=== PATIENT | male | born 1970 | race Two or more races ===

== ENCOUNTER 2017-08-15 12:00 | Emergency (ER) | payer OTHER, MEDICAID ==
[~2017-08-15] VITALS: Ht 185.4 cm; Wt 113.4 kg
[~2017-08-15 12:00] MED LIST: ASPI81CH43 PO; INSREG3 SUBCUT; INSUINJ2 SC; KEP500T PO; LEV100T PO; LEVEMIR SC; LISI-646 PO; MET25T PO; OXY20CRT PO; PANT40T PO
[2017-08-15] MEDS ORDERED: ASPirin 81 mg TAB PO ONE (14:15)
[2017-08-15 14:36] LABS: Basophils # (auto) 0.1 uL; Basophils % (auto) 1.1 % (0.0-2.0); Eosinophils # (auto) 0.1 uL; Eosinophils % (auto) 0.7 % (0.0-7.0); Hematocrit 45.9 % (41.0-53.0); Hemoglobin 15.9 g/dL (13.5-17.5); Lymphocytes # (auto) 1.7 uL; Lymphocytes % (auto) 20.9 % (10.0-50.0); Mean Corpuscular Hemoglobin 31.4 pg (28.0-32.0); Mean Corpuscular Hgb Conc. 34.7 g/dL (32.0-36.0); Mean Corpuscular Volume 90.4 fL (80.0-100.0); Mean Platelet Volume 7.5 fL (6.9-10.8); Monocytes # (auto) 0.5 uL; Monocytes % (auto) 6.4 % (0.0-12.0); Neutrophils # (auto) 5.8 uL; Neutrophils % (auto) 70.9 % (37.0-80.0); Nucleated Red Blood Cells % 0.1 %; Platelet Count (auto) 281 10^3/uL (140-450); Red Cell Distribution Width 13.6 % (11.8-14.3); White Blood Cell 8.1 10^3/uL (4.4-10.8)
[2017-08-15 15:00] LABS: BUN/Creatinine Ratio 11.4; Bilirubin, Total 0.4 mg/dL (0.2-1.0); Calcium 6.9 mg/dL (8.5-10.1); Potassium 3.6 mmol/L (3.5-5.1); Total Protein 8.1 g/dL (6.4-8.2)
[2017-08-15 17:06] VITALS: BP 106/75
== END 2017-08-15 17:07 | disposition home or self-care (01) ==
LOC: ER 12:00
DX: R07.89 Other chest pain (principal); I10 Essential (primary) hypertension; E11.9 Type 2 diabetes mellitus without complications; F17.210 Nicotine dependence, cigarettes, uncomplicated; Z79.4 Long term (current) use of insulin; Z79.82 Long term (current) use of aspirin
CPT/HCPCS: 36415; 71020; 80053; 82962; 84484; 85025; 93005

== ENCOUNTER 2018-04-13 11:08 | Inpatient (IN) | payer OTHER, MEDICAID ==
[2018-04-13] VITALS (26 sets, daily range): BP systolic 93–143; BP diastolic 61–77
[~2018-04-13] VITALS: Ht 185.4 cm; Wt 102.9 kg
[~2018-04-13 11:08] MED LIST changes: +ONDANSETRON HCL 4 MG/2 ML VIAL IV ONE; +PHENYLEPHRINE INJ 10 MG/ML 5ML VIAL IV ONE; +PROPOFOL 10 MG/ML 20 ML IV ONE; +ROCURONIUM 10MG/ML 10ML VIAL IV ONE; +SODIUM CHLOR 0.9% PF (SALINE LOCK) 10ML VIAL/SYR IV ONE; +ceFAZolin 1GM VL IV ONE; +ePHEDrine SULFATE 50 MG/ML AMP IV ONE; +fentaNYL CITRATE 250 MCG/5 ML VL IV ONE
[2018-04-13] MEDS ORDERED: SODIUM CHLORIDE 0.9% 1,000 ML IVB ONE (11:25)
[2018-04-13] MEDS ORDERED: PANTOPRAZOLE 40 MG/10 ML VIAL IV STA (11:25)
[2018-04-13] MEDS ORDERED: ONDANSETRON HCL 4 MG/2 ML VIAL IV ONE (11:30)
[2018-04-13] MEDS ORDERED: MORPHINE SULFATE 4 MG/ML SYR/VIAL IV ONE (11:30)
[2018-04-13 11:50] LABS: Basophils # (auto) 0 uL; Basophils % (auto) 0.3 % (0.0-2.0); Eosinophils # (auto) 0 uL; Eosinophils % (auto) 0.1 % (0.0-7.0); Hematocrit 39.1 % (41.0-53.0); Hemoglobin 13.1 g/dL (13.5-17.5); Lymphocytes # (auto) 0.5 uL; Lymphocytes % (auto) 3.7 % (10.0-50.0); Mean Corpuscular Hemoglobin 31.5 pg (28.0-32.0); Mean Corpuscular Hgb Conc. 33.6 g/dL (32.0-36.0); Mean Corpuscular Volume 93.8 fL (80.0-100.0); Monocytes # (auto) 0.4 uL; Monocytes % (auto) 3.1 % (0.0-12.0); Neutrophils # (auto) 13.2 uL; Neutrophils % (auto) 92.8 % (37.0-80.0); Nucleated Red Blood Cells % 0.1 %; Platelet Count (auto) 311 10^3/uL (140-450); Red Blood Cells 4.17 10^6/uL (4.5-5.90); Red Cell Distribution Width 14.3 % (11.8-14.3); White Blood Cell 14.2 10^3/uL (4.4-10.8)
[2018-04-13] MEDS ORDERED: IOHEXOL 300 MG/ML 100ML BOTTLE IJ ONE (11:59)
[2018-04-13] MEDS ORDERED: metroNIDAZOLE 500MG/100ML 100 ML IV ONE (12:00)
[2018-04-13] MEDS ORDERED: PIPERACILLIN-TAZOB 3.375GM 100 ML IV ONE (12:00)
[2018-04-13 12:13] LABS: Albumin 3.1 g/dL (3.4-5.0); BUN/Creatinine Ratio 22.2; Bilirubin, Total 1.7 mg/dL (0.2-1.0); Calcium 6.3 mg/dL (8.5-10.1); Magnesium 2.7 mg/dL (1.6-2.6); Potassium 3.2 mmol/L (3.5-5.1); Total Protein 8.4 g/dL (6.4-8.2)
[2018-04-13] MEDS ORDERED: POTASSIUM CHL 20MEQ/100ML 100 ML IV ONE (13:15)
[2018-04-13] MEDS ORDERED: NITROGLYCERIN 0.4 MG SL TAB SL PRN (14:00)
[2018-04-13] MEDS ORDERED: MORPHINE SULF INJ 2 MG/ML SYRINGE 1ML IV PRN (14:00)
[2018-04-13] MEDS: SODIUM CHLORIDE 0.9% 1,000 ML IV SCH ×2 (14:00→18:55)
[2018-04-13] MEDS ORDERED: CLINDAMYCIN 900MG IV 50 ML IV ONE (14:00)
[2018-04-13 14:31] LABS: Partial Thromboplastin Time 34.2 sec (23.78-33.04); Prothrombin Time 10.7 sec (9.27-12.13)
[2018-04-13] MEDS ORDERED: POVIDONE IODINE 10 % TOPICAL OINT 30GM TOP ONE (14:52)
[2018-04-13] MEDS ORDERED: MIDAZOLAM DRIP 50 mg/50mL 50 ML IV ONE (17:07)
[2018-04-13] MEDS: ceFAZolin 1GM/50ML 50 ML IV SCH (18:00)
[2018-04-13] MEDS ORDERED: PIPERACILLIN-TAZOB 3.375GM 100 ML IV SCH (19:00)
[2018-04-13] MEDS: metroNIDAZOLE 500MG/100ML 100 ML IV SCH (20:16)
[2018-04-13] MEDS: HYDROmorphone HCL 2 MG/ML VL IV PRN (20:17)
[2018-04-13] MEDS ORDERED: CLINDAMYCIN 600MG IV 50 ML IV SCH (22:00)
[2018-04-14] VITALS (106 sets, daily range): BP systolic 82–107; BP diastolic 40–72
[2018-04-14] MEDS: MIDAZOLAM DRIP 50 mg/50mL 50 ML IV SCH ×2 (00:09→07:30)
[2018-04-14] MEDS: D5W/SOD CHL 0.9%/KCL 40MEQ 1,000 ML IV SCH ×2 (01:00→12:44)
[2018-04-14] MEDS: ceFAZolin 1GM/50ML 50 ML IV SCH ×2 (02:28→09:38)
[2018-04-14] MEDS: SODIUM CHLORIDE 0.9% 1,000 ML IV SCH ×2 (03:13→11:05)
[2018-04-14] MEDS: metroNIDAZOLE 500MG/100ML 100 ML IV SCH ×2 (04:00→11:41)
[2018-04-14] MEDS: HYDROmorphone HCL 2 MG/ML VL IV PRN (09:39)
[2018-04-14 10:56] LABS: Basophils # (auto) 0 uL; Basophils % (auto) 0.3 % (0.0-2.0); Eosinophils # (auto) 0 uL; Eosinophils % (auto) 0.3 % (0.0-7.0); Hematocrit 30.5 % (41.0-53.0); Hemoglobin 10.1 g/dL (13.5-17.5); Lymphocytes # (auto) 0.7 uL; Lymphocytes % (auto) 6.5 % (10.0-50.0); Mean Corpuscular Hemoglobin 31.5 pg (28.0-32.0); Mean Corpuscular Hgb Conc. 32.9 g/dL (32.0-36.0); Mean Corpuscular Volume 95.5 fL (80.0-100.0); Monocytes # (auto) 0.5 uL; Monocytes % (auto) 5.2 % (0.0-12.0); Neutrophils # (auto) 9.1 uL; Neutrophils % (auto) 87.7 % (37.0-80.0); Nucleated Red Blood Cells % 0.1 %; Platelet Count (auto) 238 10^3/uL (140-450); Red Cell Distribution Width 14.5 % (11.8-14.3); White Blood Cell 10.3 10^3/uL (4.4-10.8)
[2018-04-14] MEDS ORDERED: DEXTROSE (50%) 50ML SYRG IV PRN (12:15)
[2018-04-14] MEDS ORDERED: TPN PER PHARMACY 0 ML IV SCH (12:15)
[2018-04-14 12:27] LABS: Sodium 139 mmol/L (136-145)
[2018-04-14 12:29] LABS: Anion Gap 12 (5-15); Blood Urea Nitrogen 52 mg/dL (7-18); Calcium 5.4 mg/dL (8.5-10.1); Carbon Dioxide 24 mmol/L (21-32); Chloride 103 mmol/L (98-107); GFR African American 46 mL/min; GFR Non-African American 38 mL/min; Glucose 170 mg/dL (74-106); Magnesium 2.3 mg/dL (1.6-2.6); Potassium 2.7 mmol/L (3.5-5.1)
[2018-04-14] MEDS ORDERED: DEXTROSE (50%) 50ML SYRG IV SCH (12:46)
[2018-04-14] MEDS: POTASSIUM CHL 20MEQ/100ML 100 ML IV SCH ×3 (12:55→16:28)
[2018-04-14] MEDS: PIPERACILLIN-TAZOB 3.375GM 100 ML IV SCH ×2 (12:55→18:39)
[2018-04-14] MEDS ORDERED: FAMOTIDINE (10MG/ML) 2ML VL IV SCH (13:00)
[2018-04-14] MEDS ORDERED: PIPERACILLIN-TAZOB 3.375GM 100 ML IV SCH (13:00)
[2018-04-14 13:04] LABS: Albumin 2.1 g/dL (3.4-5.0); Bilirubin, Direct 0.5 mg/dL (0-0.2); Bilirubin, Total 0.7 mg/dL (0.2-1.0); Phosphorus 5.1 mg/dL (2.5-4.90)
[2018-04-14] MEDS ORDERED: CALCIUM GLUC 4.65meq/50ml D5AE 50 ML IV ONE ×3 (13:05→19:00)
[2018-04-14] MEDS ORDERED: CALCIUM CHL 100MG/ML 1,000 MG in D5W 5% 100 ML IV ONE (13:30)
[2018-04-14] MEDS ORDERED: InsuLIN REG 1unit/0.01ml Soln (100units/ml) SC SCH (18:00)
[2018-04-14] MEDS ORDERED: ACCU-CHEK COMFORT CURVE STRIP VI SCH (18:00)
[2018-04-14] MEDS ORDERED: PPN PER PHARMACY IV NR ×8 (20:00)
[2018-04-14] MEDS ORDERED: LEVETIRACETAM 500 MG/5ML INJ IV ONE (22:07)
[2018-04-14] MEDS: FAMOTIDINE (10MG/ML) 2ML VL IV SCH (22:08)
[2018-04-14] MEDS: LEVETIRACETAM INJ 1,000 MG in D5W 5% 100 ML IV SCH (22:22)
[2018-04-14] MEDS: ACCU-CHEK COMFORT CURVE STRIP VI SCH (23:54)
[2018-04-14] MEDS: InsuLIN REG 1unit/0.01ml Soln (100units/ml) SC SCH (23:54)
[2018-04-15] VITALS (106 sets, daily range): BP systolic 84–107; BP diastolic 48–73
[2018-04-15] MEDS: MIDAZOLAM DRIP 50 mg/50mL 50 ML IV SCH ×2 (01:16→08:39)
[2018-04-15] MEDS: PIPERACILLIN-TAZOB 3.375GM 100 ML IV SCH ×4 (01:35→18:10)
[2018-04-15 03:50] LABS: Basophils # (auto) 0 uL; Basophils % (auto) 0.1 % (0.0-2.0); Eosinophils # (auto) 0 uL; Eosinophils % (auto) 0.6 % (0.0-7.0); Hematocrit 29.5 % (41.0-53.0); Lymphocytes # (auto) 0.6 uL; Lymphocytes % (auto) 6.8 % (10.0-50.0); Mean Corpuscular Hemoglobin 31.6 pg (28.0-32.0); Mean Corpuscular Hgb Conc. 33.7 g/dL (32.0-36.0); Mean Corpuscular Volume 93.7 fL (80.0-100.0); Monocytes # (auto) 0.3 uL; Monocytes % (auto) 4.1 % (0.0-12.0); Neutrophils # (auto) 7.2 uL; Neutrophils % (auto) 88.4 % (37.0-80.0); Platelet Count (auto) 226 10^3/uL (140-450); Red Blood Cells 3.15 10^6/uL (4.5-5.90); Red Cell Distribution Width 14.4 % (11.8-14.3); White Blood Cell 8.2 10^3/uL (4.4-10.8)
[2018-04-15 04:14] LABS: BUN/Creatinine Ratio 23.9; Bilirubin, Total 0.6 mg/dL (0.2-1.0); Phosphorus 2.7 mg/dL (2.5-4.90); Potassium 3.7 mmol/L (3.5-5.1); Pre Albumin 5.7 mg/dL (20.0-40.0); Total Protein 5.9 g/dL (6.4-8.2)
[2018-04-15 04:43] LABS: Calcium 5.3 mg/dL (8.5-10.1)
[2018-04-15] MEDS ORDERED: CALCIUM GLUC 4.65meq/50ml D5AE 50 ML IV ONE ×3 (05:30→13:30)
[2018-04-15] MEDS: InsuLIN REG 1unit/0.01ml Soln (100units/ml) SC SCH ×3 (06:10→18:52)
[2018-04-15] MEDS: ACCU-CHEK COMFORT CURVE STRIP VI SCH ×3 (06:10→18:10)
[2018-04-15] MEDS: fentaNYL Drip 2500mCg/250mlNS 250 ML IV SCH (06:59)
[2018-04-15] MEDS ORDERED: DEXTROSE (50%) 50ML SYRG IV PRN (07:15)
[2018-04-15] MEDS: ALBUMIN 25% 100 ML IV SCH ×4 (08:39→23:58)
[2018-04-15] MEDS: LEVOTHYROXINE SODIUM 100 MCG/5 ML INJ IV SCH (10:32)
[2018-04-15] MEDS: FAMOTIDINE (10MG/ML) 2ML VL IV SCH ×2 (10:33→22:06)
[2018-04-15] MEDS: LEVETIRACETAM INJ 1,000 MG in D5W 5% 100 ML IV SCH ×2 (11:00→22:06)
[2018-04-15 11:46] LABS: BUN/Creatinine Ratio 22.5; Potassium 3.8 mmol/L (3.5-5.1)
[2018-04-15 11:52] LABS: Calcium 5.4 mg/dL (8.5-10.1)
[2018-04-15] MEDS: D5W/SOD CHL 0.9%/KCL 40MEQ 1,000 ML IV SCH ×2 (12:00→23:55)
[2018-04-15] MEDS ORDERED: TPN PER PHARMACY IV NR ×10 (20:00)
[2018-04-16] VITALS (108 sets, daily range): BP systolic 93–131; BP diastolic 43–90
[2018-04-16] MEDS: PIPERACILLIN-TAZOB 3.375GM 100 ML IV SCH ×4 (01:17→18:06)
[2018-04-16 03:52] LABS: Basophils # (auto) 0 uL; Basophils % (auto) 0.3 % (0.0-2.0); Eosinophils # (auto) 0.1 uL; Eosinophils % (auto) 1.2 % (0.0-7.0); Hematocrit 28.4 % (41.0-53.0); Hemoglobin 9.4 g/dL (13.5-17.5); Lymphocytes # (auto) 0.7 uL; Lymphocytes % (auto) 9.2 % (10.0-50.0); Mean Corpuscular Hemoglobin 31.7 pg (28.0-32.0); Mean Corpuscular Volume 95.9 fL (80.0-100.0); Monocytes # (auto) 0.3 uL; Monocytes % (auto) 4.7 % (0.0-12.0); Neutrophils % (auto) 84.6 % (37.0-80.0); Platelet Count (auto) 182 10^3/uL (140-450); Red Blood Cells 2.97 10^6/uL (4.5-5.90); Red Cell Distribution Width 15.4 % (11.8-14.3); White Blood Cell 7.1 10^3/uL (4.4-10.8)
[2018-04-16 04:21] LABS: Albumin 2.9 g/dL (3.4-5.0); BUN/Creatinine Ratio 18.5; Bilirubin, Total 0.6 mg/dL (0.2-1.0); Magnesium 2.2 mg/dL (1.6-2.6); Phosphorus 1.1 mg/dL (2.5-4.90); Potassium 4.3 mmol/L (3.5-5.1); Total Protein 6.3 g/dL (6.4-8.2)
[2018-04-16 04:26] LABS: Calcium 5.6 mg/dL (8.5-10.1)
[2018-04-16] MEDS: ACCU-CHEK COMFORT CURVE STRIP VI SCH ×4 (06:07→17:59)
[2018-04-16] MEDS: InsuLIN REG 1unit/0.01ml Soln (100units/ml) SC SCH ×4 (06:07→18:00)
[2018-04-16] MEDS: fentaNYL Drip 2500mCg/250mlNS 250 ML IV SCH ×2 (06:44→16:33)
[2018-04-16] MEDS: D5W/SOD CHL 0.9%/KCL 40MEQ 1,000 ML IV SCH (06:47)
[2018-04-16] MEDS ORDERED: CALCIUM CHL 100MG/ML 1,000 MG in D5W 5% 100 ML IV ONE (07:30)
[2018-04-16] MEDS ORDERED: SODIUM PHOSPHATES 40 MEQ in D5W 5% 250 ML IV ONE ×2 (07:30→15:00)
[2018-04-16] MEDS: SOD CHL 0.45% 1,000 ML IV SCH ×2 (08:12→18:06)
[2018-04-16] MEDS: LEVOTHYROXINE SODIUM 100 MCG/5 ML INJ IV SCH (10:03)
[2018-04-16] MEDS: FAMOTIDINE (10MG/ML) 2ML VL IV SCH ×2 (10:04→21:31)
[2018-04-16] MEDS: HYDROmorphone HCL 2 MG/ML VL IV PRN ×2 (10:28→12:38)
[2018-04-16] MEDS: LEVETIRACETAM INJ 1,000 MG in D5W 5% 100 ML IV SCH ×2 (10:46→21:31)
[2018-04-16] MEDS: MIDAZOLAM DRIP 50 mg/50mL 50 ML IV SCH (15:46)
[2018-04-16] MEDS ORDERED: TPN PER PHARMACY IV NR ×10 (20:00)
[2018-04-17] VITALS (101 sets, daily range): BP systolic 90–156; BP diastolic 44–92
[2018-04-17] MEDS: PIPERACILLIN-TAZOB 3.375GM 100 ML IV SCH ×4 (00:43→18:16)
[2018-04-17] MEDS ORDERED: CATHFLO ACTIVASE (ALTEPLASE) 2 MG VIAL IV ONE (00:45)
[2018-04-17] MEDS: SOD CHL 0.45% 1,000 ML IV SCH ×3 (03:30→15:00)
[2018-04-17 03:46] LABS: Basophils # (auto) 0 uL; Basophils % (auto) 0.1 % (0.0-2.0); Eosinophils # (auto) 0.2 uL; Eosinophils % (auto) 1.7 % (0.0-7.0); Hematocrit 33.3 % (41.0-53.0); Hemoglobin 10.8 g/dL (13.5-17.5); Lymphocytes # (auto) 0.8 uL; Lymphocytes % (auto) 7.9 % (10.0-50.0); Mean Corpuscular Hemoglobin 31.1 pg (28.0-32.0); Mean Corpuscular Hgb Conc. 32.4 g/dL (32.0-36.0); Mean Corpuscular Volume 95.9 fL (80.0-100.0); Monocytes # (auto) 0.6 uL; Monocytes % (auto) 5.7 % (0.0-12.0); Neutrophils # (auto) 8.3 uL; Neutrophils % (auto) 84.6 % (37.0-80.0); Platelet Count (auto) 211 10^3/uL (140-450); Red Blood Cells 3.47 10^6/uL (4.5-5.90); Red Cell Distribution Width 15.3 % (11.8-14.3); White Blood Cell 9.8 10^3/uL (4.4-10.8)
[2018-04-17 04:03] LABS: Albumin 2.5 g/dL (3.4-5.0); BUN/Creatinine Ratio 17.6; Bilirubin, Total 0.8 mg/dL (0.2-1.0); Phosphorus 3.3 mg/dL (2.5-4.90); Potassium 3.9 mmol/L (3.5-5.1); Total Protein 6.2 g/dL (6.4-8.2)
[2018-04-17] MEDS: fentaNYL Drip 2500mCg/250mlNS 250 ML IV SCH ×2 (04:06→16:51)
[2018-04-17 04:21] LABS: Calcium 5.4 mg/dL (8.5-10.1)
[2018-04-17] MEDS ORDERED: CALCIUM GLUC 4.65meq/50ml D5AE 50 ML IV ONE ×3 (05:15→05:30)
[2018-04-17] MEDS: ACCU-CHEK COMFORT CURVE STRIP VI SCH ×4 (05:33→18:01)
[2018-04-17] MEDS: InsuLIN REG 1unit/0.01ml Soln (100units/ml) SC SCH ×4 (05:33→18:16)
[2018-04-17] MEDS ORDERED: CALCIUM CHL 100MG/ML 1,000 MG in D5W 5% 100 ML IV ONE (09:30)
[2018-04-17] MEDS: FAMOTIDINE (10MG/ML) 2ML VL IV SCH ×2 (09:45→22:12)
[2018-04-17] MEDS: LEVOTHYROXINE SODIUM 100 MCG/5 ML INJ IV SCH (09:45)
[2018-04-17] MEDS: LEVETIRACETAM INJ 1,000 MG in D5W 5% 100 ML IV SCH ×2 (10:26→22:13)
[2018-04-17] MEDS: HYDROmorphone HCL 2 MG/ML VL IV PRN (11:06)
[2018-04-17] MEDS: MIDAZOLAM DRIP 50 mg/50mL 50 ML IV SCH (11:58)
[2018-04-17] MEDS ORDERED: TPN PER PHARMACY IV NR ×10 (20:00)
[2018-04-17] MEDS: ALBUTEROL SULF 2.5 MG/0.5ML(0.5%) NEB SOLN NEB SCH (22:26)
[2018-04-17] MEDS: IPRATROPIUM BROM 0.5 MG/2.5ML INH SOL NEB SCH (22:26)
[2018-04-18] VITALS (98 sets, daily range): BP systolic 89–137; BP diastolic 38–67
[2018-04-18] MEDS: InsuLIN REG 1unit/0.01ml Soln (100units/ml) SC SCH ×5 (00:27→23:44)
[2018-04-18] MEDS: ACCU-CHEK COMFORT CURVE STRIP VI SCH ×5 (00:27→23:44)
[2018-04-18] MEDS: MIDAZOLAM DRIP 50 mg/50mL 50 ML IV SCH ×2 (01:00→12:35)
[2018-04-18] MEDS: PIPERACILLIN-TAZOB 3.375GM 100 ML IV SCH ×4 (01:00→19:54)
[2018-04-18 05:27] LABS: Hematocrit 30.3 % (41.0-53.0); Hemoglobin 10.1 g/dL (13.5-17.5); Mean Corpuscular Hemoglobin 31.8 pg (28.0-32.0); Mean Corpuscular Hgb Conc. 33.2 g/dL (32.0-36.0); Mean Corpuscular Volume 95.7 fL (80.0-100.0); Platelet Count (auto) 202 10^3/uL (140-450); Red Blood Cells 3.17 10^6/uL (4.5-5.90); White Blood Cell 8.7 10^3/uL (4.4-10.8)
[2018-04-18 05:37] LABS: Basophils % (manual) 0 (0.0-2.0); Blast Cells 0; Promyelocytes % 0; Reactive Lymphocytes 0
[2018-04-18 05:47] LABS: Albumin 2.1 g/dL (3.4-5.0); BUN/Creatinine Ratio 15.3; Bilirubin, Total 0.6 mg/dL (0.2-1.0); Magnesium 1.5 mg/dL (1.6-2.6); Phosphorus 2.8 mg/dL (2.5-4.90); Potassium 3.5 mmol/L (3.5-5.1); Total Protein 5.9 g/dL (6.4-8.2)
[2018-04-18 05:49] LABS: Calcium 5.5 mg/dL (8.5-10.1)
[2018-04-18] MEDS: ALBUTEROL SULF 2.5 MG/0.5ML(0.5%) NEB SOLN NEB SCH ×3 (06:31→18:15)
[2018-04-18] MEDS: IPRATROPIUM BROM 0.5 MG/2.5ML INH SOL NEB SCH ×3 (06:32→18:15)
[2018-04-18 06:36] LABS: Band Neutrophils % (manual) 4; Eosinophils % (manual) 4 (0-7); Lymphocytes % (manual) 8 (10.0-50.0); Metamyelocytes % 1; Monocytes % (manual) 9 (0-12); Myelocytes % 1
[2018-04-18] MEDS ORDERED: CALCIUM GLUC 4.65meq/50ml D5AE 50 ML IV ONE ×2 (07:30→08:00)
[2018-04-18] MEDS ORDERED: CALCIUM CHL 100MG/ML 1,000 MG in D5W 5% 100 ML IV ONE (08:15)
[2018-04-18] MEDS: MAGNESIUM SULFATE 1GM/100ML 100 ML IV SCH ×2 (09:35→10:00)
[2018-04-18] MEDS: LEVOTHYROXINE SODIUM 100 MCG/5 ML INJ IV SCH (10:00)
[2018-04-18] MEDS: LEVETIRACETAM INJ 1,000 MG in D5W 5% 100 ML IV SCH ×2 (10:00→22:04)
[2018-04-18] MEDS: FAMOTIDINE (10MG/ML) 2ML VL IV SCH ×2 (10:00→22:04)
[2018-04-18] MEDS: SOD CHL 0.45% 1,000 ML IV SCH (10:56)
[2018-04-18] MEDS: fentaNYL Drip 2500mCg/250mlNS 250 ML IV SCH (16:58)
[2018-04-18] MEDS ORDERED: TPN PER PHARMACY IV NR ×10 (20:00)
[2018-04-19] VITALS (89 sets, daily range): BP systolic 106–171; BP diastolic 45–85
[2018-04-19] MEDS: PIPERACILLIN-TAZOB 3.375GM 100 ML IV SCH ×4 (01:08→18:35)
[2018-04-19] MEDS: SOD CHL 0.45% 1,000 ML IV SCH ×2 (05:30→06:00)
[2018-04-19 05:40] LABS: Hematocrit 29.2 % (41.0-53.0); Hemoglobin 9.8 g/dL (13.5-17.5); Mean Corpuscular Hemoglobin 31.7 pg (28.0-32.0); Mean Corpuscular Hgb Conc. 33.6 g/dL (32.0-36.0); Mean Corpuscular Volume 94.2 fL (80.0-100.0); Platelet Count (auto) 209 10^3/uL (140-450); Red Cell Distribution Width 14.7 % (11.8-14.3); White Blood Cell 9.3 10^3/uL (4.4-10.8)
[2018-04-19] MEDS: MIDAZOLAM DRIP 50 mg/50mL 50 ML IV SCH (06:00)
[2018-04-19] MEDS: fentaNYL Drip 2500mCg/250mlNS 250 ML IV SCH (06:00)
[2018-04-19] MEDS: ACCU-CHEK COMFORT CURVE STRIP VI SCH ×3 (06:01→17:51)
[2018-04-19 06:03] LABS: Basophils % (manual) 0 (0.0-2.0); Blast Cells 0; Metamyelocytes % 0; Myelocytes % 0; Promyelocytes % 0; Reactive Lymphocytes 0
[2018-04-19 06:06] LABS: Albumin 1.9 g/dL (3.4-5.0); BUN/Creatinine Ratio 13.6; Magnesium 1.8 mg/dL (1.6-2.6); Potassium 3.5 mmol/L (3.5-5.1)
[2018-04-19 06:15] LABS: Bilirubin, Total 0.5 mg/dL (0.2-1.0); Total Protein 5.9 g/dL (6.4-8.2)
[2018-04-19] MEDS: InsuLIN REG 1unit/0.01ml Soln (100units/ml) SC SCH ×3 (06:15→17:51)
[2018-04-19] MEDS: IPRATROPIUM BROM 0.5 MG/2.5ML INH SOL NEB SCH ×4 (06:16→19:29)
[2018-04-19] MEDS: ALBUTEROL SULF 2.5 MG/0.5ML(0.5%) NEB SOLN NEB SCH ×4 (06:17→19:29)
[2018-04-19 06:22] LABS: Calcium 5.6 mg/dL (8.5-10.1)
[2018-04-19 06:47] LABS: Band Neutrophils % (manual) 2; Eosinophils % (manual) 4 (0-7); Lymphocytes % (manual) 7 (10.0-50.0); Monocytes % (manual) 2 (0-12)
[2018-04-19 06:58] LABS: Phosphorus 3.3 mg/dL (2.5-4.90)
[2018-04-19] MEDS ORDERED: CALCIUM GLUC 4.65meq/50ml D5AE 50 ML IV ONE ×3 (07:30→13:30)
[2018-04-19] MEDS ORDERED: CALCIUM CHL 100MG/ML 1,000 MG in D5W 5% 100 ML IV ONE (08:15)
[2018-04-19] MEDS ORDERED: MAGNESIUM SULFATE 1GM/100ML 100 ML IV ONE (08:15)
[2018-04-19 09:01] LABS: Urine Bacteria FEW /hpf (None Seen); Urine Blood TRACE /uL (Negative); Urine Mucus FEW (None Seen); Urine Specific Gravity 1.011 (1.001-1.035); Urine WBC 4 /hpf (0 - 3)
[2018-04-19] MEDS: LEVOTHYROXINE SODIUM 100 MCG/5 ML INJ IV SCH (10:02)
[2018-04-19] MEDS: FAMOTIDINE (10MG/ML) 2ML VL IV SCH ×2 (10:02→21:15)
[2018-04-19] MEDS: LEVETIRACETAM INJ 1,000 MG in D5W 5% 100 ML IV SCH ×2 (10:57→22:42)
[2018-04-19] MEDS ORDERED: FUROSEMIDE 40 MG/4 ML VIAL IV ONE (12:30)
[2018-04-19] MEDS ORDERED: MIDAZOLAM HCL 1MG/1ML-2 ML VIAL ONE (16:27)
[2018-04-19] MEDS ORDERED: MIDAZOLAM HCL 1MG/1ML-2 ML VIAL IV PRN (16:30)
[2018-04-19] MEDS ORDERED: TPN PER PHARMACY IV NR ×11 (20:00)
[2018-04-19] MEDS: HYDROmorphone HCL 2 MG/ML VL IV PRN (22:43)
[2018-04-20] VITALS (74 sets, daily range): BP systolic 105–165; BP diastolic 42–93
[2018-04-20] MEDS: ACCU-CHEK COMFORT CURVE STRIP VI SCH ×5 (00:14→23:55)
[2018-04-20] MEDS: InsuLIN REG 1unit/0.01ml Soln (100units/ml) SC SCH ×5 (00:15→23:55)
[2018-04-20] MEDS: IPRATROPIUM BROM 0.5 MG/2.5ML INH SOL NEB SCH ×4 (00:26→19:05)
[2018-04-20] MEDS: ALBUTEROL SULF 2.5 MG/0.5ML(0.5%) NEB SOLN NEB SCH ×4 (00:26→19:05)
[2018-04-20] MEDS: PIPERACILLIN-TAZOB 3.375GM 100 ML IV SCH ×4 (01:13→18:10)
[2018-04-20] MEDS: MIDAZOLAM DRIP 50 mg/50mL 50 ML IV SCH (01:14)
[2018-04-20 04:39] LABS: Hematocrit 31.8 % (41.0-53.0); Hemoglobin 10.8 g/dL (13.5-17.5); Mean Corpuscular Hemoglobin 31.5 pg (28.0-32.0); Mean Corpuscular Hgb Conc. 33.9 g/dL (32.0-36.0); Mean Corpuscular Volume 92.9 fL (80.0-100.0); Platelet Count (auto) 253 10^3/uL (140-450); Red Blood Cells 3.43 10^6/uL (4.5-5.90); Red Cell Distribution Width 14.2 % (11.8-14.3); White Blood Cell 10.6 10^3/uL (4.4-10.8)
[2018-04-20 05:03] LABS: Albumin 2.1 g/dL (3.4-5.0); BUN/Creatinine Ratio 13.2; Basophils % (manual) 0 (0.0-2.0); Bilirubin, Total 0.6 mg/dL (0.2-1.0); Blast Cells 0; Magnesium 2.1 mg/dL (1.6-2.6); Myelocytes % 0; Phosphorus 3.3 mg/dL (2.5-4.90); Potassium 3.4 mmol/L (3.5-5.1); Promyelocytes % 0; Reactive Lymphocytes 0; Total Protein 6.3 g/dL (6.4-8.2)
[2018-04-20 05:07] LABS: Calcium 5.7 mg/dL (8.5-10.1)
[2018-04-20 05:34] LABS: Band Neutrophils % (manual) 4; Eosinophils % (manual) 3 (0-7); Lymphocytes % (manual) 7 (10.0-50.0); Metamyelocytes % 2; Monocytes % (manual) 10 (0-12)
[2018-04-20] MEDS: HYDROmorphone HCL 2 MG/ML VL IV PRN (05:39)
[2018-04-20] MEDS: fentaNYL Drip 2500mCg/250mlNS 250 ML IV SCH (06:08)
[2018-04-20] MEDS ORDERED: CALCIUM GLUC 4.65meq/50ml D5AE 50 ML IV ONE ×2 (07:00→14:00)
[2018-04-20] MEDS ORDERED: CALCIUM CHL 100MG/ML 1,000 MG in D5W 5% 100 ML IV ONE (07:45)
[2018-04-20] MEDS: POTASSIUM CHL 20MEQ/100ML 100 ML IV SCH ×2 (08:16→09:59)
[2018-04-20] MEDS: LEVOTHYROXINE SODIUM 100 MCG/5 ML INJ IV SCH (10:12)
[2018-04-20] MEDS: FAMOTIDINE (10MG/ML) 2ML VL IV SCH ×2 (10:12→22:00)
[2018-04-20] MEDS: LEVETIRACETAM INJ 1,000 MG in D5W 5% 100 ML IV SCH ×2 (10:12→22:00)
[2018-04-20] MEDS ORDERED: TPN PER PHARMACY IV NR ×10 (20:00)
[2018-04-21] VITALS (65 sets, daily range): BP systolic 128–155; BP diastolic 72–108
[2018-04-21] MEDS: PIPERACILLIN-TAZOB 3.375GM 100 ML IV SCH ×4 (00:41→19:03)
[2018-04-21] MEDS: ALBUTEROL SULF 2.5 MG/0.5ML(0.5%) NEB SOLN NEB SCH ×5 (01:13→23:50)
[2018-04-21] MEDS: IPRATROPIUM BROM 0.5 MG/2.5ML INH SOL NEB SCH ×5 (01:13→23:50)
[2018-04-21 04:14] LABS: Hematocrit 33.3 % (41.0-53.0); Mean Corpuscular Hemoglobin 30.5 pg (28.0-32.0); Mean Corpuscular Hgb Conc. 33.1 g/dL (32.0-36.0); Mean Corpuscular Volume 92.2 fL (80.0-100.0); Platelet Count (auto) 304 10^3/uL (140-450); Red Blood Cells 3.61 10^6/uL (4.5-5.90); Red Cell Distribution Width 14.8 % (11.8-14.3); White Blood Cell 11.5 10^3/uL (4.4-10.8)
[2018-04-21 04:27] LABS: Band Neutrophils % (manual) 0; Basophils % (manual) 0 (0.0-2.0); Blast Cells 0; Metamyelocytes % 0; Myelocytes % 0; Promyelocytes % 0; Reactive Lymphocytes 0
[2018-04-21 04:38] LABS: Albumin 2.2 g/dL (3.4-5.0); BUN/Creatinine Ratio 13.9; Bilirubin, Total 0.5 mg/dL (0.2-1.0); Calcium 6.1 mg/dL (8.5-10.1); Magnesium 2.3 mg/dL (1.6-2.6); Phosphorus 2.8 mg/dL (2.5-4.90); Potassium 3.7 mmol/L (3.5-5.1); Pre Albumin 8.9 mg/dL (20.0-40.0); Total Protein 6.6 g/dL (6.4-8.2)
[2018-04-21] MEDS: InsuLIN REG 1unit/0.01ml Soln (100units/ml) SC SCH ×3 (06:00→17:46)
[2018-04-21] MEDS: ACCU-CHEK COMFORT CURVE STRIP VI SCH ×3 (06:24→17:46)
[2018-04-21] MEDS: fentaNYL Drip 2500mCg/250mlNS 250 ML IV SCH (06:44)
[2018-04-21 07:14] LABS: Eosinophils % (manual) 2 (0-7); Lymphocytes % (manual) 6 (10.0-50.0); Monocytes % (manual) 2 (0-12)
[2018-04-21] MEDS ORDERED: CALCIUM CHL 100MG/ML 1,000 MG in D5W 5% 100 ML IV ONE (07:30)
[2018-04-21] MEDS: LEVOTHYROXINE SODIUM 100 MCG/5 ML INJ IV SCH (09:49)
[2018-04-21] MEDS: FAMOTIDINE (10MG/ML) 2ML VL IV SCH ×2 (09:49→22:18)
[2018-04-21] MEDS: LEVETIRACETAM INJ 1,000 MG in D5W 5% 100 ML IV SCH ×2 (10:34→22:18)
[2018-04-21] MEDS ORDERED: NOREPINEPHRINE 8 MG/250ML KIT 250 ML IV SCH (13:10)
[2018-04-21] MEDS: MIDAZOLAM DRIP 50 mg/50mL 50 ML IV SCH (16:45)
[2018-04-21] MEDS ORDERED: TPN PER PHARMACY IV NR ×10 (20:00)
[2018-04-22] VITALS (28 sets, daily range): BP systolic 96–161; BP diastolic 55–97
[2018-04-22] MEDS: InsuLIN REG 1unit/0.01ml Soln (100units/ml) SC SCH ×4 (00:30→18:00)
[2018-04-22] MEDS: ACCU-CHEK COMFORT CURVE STRIP VI SCH ×4 (00:30→18:00)
[2018-04-22] MEDS: PIPERACILLIN-TAZOB 3.375GM 100 ML IV SCH ×4 (01:12→18:54)
[2018-04-22 04:42] LABS: Basophils # (auto) 0.1 uL; Basophils % (auto) 0.7 % (0.0-2.0); Eosinophils # (auto) 0.2 uL; Hematocrit 31.7 % (41.0-53.0); Hemoglobin 10.7 g/dL (13.5-17.5); Lymphocytes # (auto) 0.9 uL; Lymphocytes % (auto) 8.6 % (10.0-50.0); Mean Corpuscular Hemoglobin 31.2 pg (28.0-32.0); Mean Corpuscular Hgb Conc. 33.8 g/dL (32.0-36.0); Mean Corpuscular Volume 92.4 fL (80.0-100.0); Monocytes % (auto) 8.8 % (0.0-12.0); Neutrophils # (auto) 8.8 uL; Neutrophils % (auto) 79.9 % (37.0-80.0); Platelet Count (auto) 322 10^3/uL (140-450); Red Blood Cells 3.43 10^6/uL (4.5-5.90); Red Cell Distribution Width 14.4 % (11.8-14.3)
[2018-04-22 05:05] LABS: Albumin 2.2 g/dL (3.4-5.0); BUN/Creatinine Ratio 13.6; Bilirubin, Total 0.5 mg/dL (0.2-1.0); Calcium 6.1 mg/dL (8.5-10.1); Magnesium 2.4 mg/dL (1.6-2.6); Phosphorus 3.2 mg/dL (2.5-4.90); Total Protein 6.5 g/dL (6.4-8.2)
[2018-04-22] MEDS: fentaNYL Drip 2500mCg/250mlNS 250 ML IV SCH (06:44)
[2018-04-22] MEDS: ALBUTEROL SULF 2.5 MG/0.5ML(0.5%) NEB SOLN NEB SCH ×3 (07:03→18:53)
[2018-04-22] MEDS: IPRATROPIUM BROM 0.5 MG/2.5ML INH SOL NEB SCH ×3 (07:03→18:54)
[2018-04-22] MEDS ORDERED: CALCIUM GLUC IV ONE (11:00)
[2018-04-22] MEDS ORDERED: SODIUM CHL 0.9% IV ONE (11:00)
[2018-04-22] MEDS: LEVETIRACETAM INJ 1,000 MG in D5W 5% 100 ML IV SCH ×2 (11:08→22:45)
[2018-04-22] MEDS: FAMOTIDINE (10MG/ML) 2ML VL IV SCH ×2 (11:08→22:28)
[2018-04-22] MEDS: LEVOTHYROXINE SODIUM 100 MCG/5 ML INJ IV SCH (11:08)
[2018-04-22] MEDS ORDERED: TPN PER PHARMACY IV NR ×10 (20:00)
[2018-04-22] MEDS ORDERED: LEVETIRACETAM 500 MG/5ML INJ IV ONE (22:56)
[2018-04-23] VITALS (43 sets, daily range): BP systolic 112–144; BP diastolic 44–89
[2018-04-23] MEDS: ALBUTEROL SULF 2.5 MG/0.5ML(0.5%) NEB SOLN NEB SCH ×4 (00:51→18:47)
[2018-04-23] MEDS: IPRATROPIUM BROM 0.5 MG/2.5ML INH SOL NEB SCH ×4 (00:51→18:47)
[2018-04-23] MEDS: PIPERACILLIN-TAZOB 3.375GM 100 ML IV SCH ×4 (01:33→19:26)
[2018-04-23 03:52] LABS: Basophils # (auto) 0.1 uL; Basophils % (auto) 0.6 % (0.0-2.0); Eosinophils # (auto) 0.3 uL; Eosinophils % (auto) 2.6 % (0.0-7.0); Hematocrit 32.1 % (41.0-53.0); Hemoglobin 10.8 g/dL (13.5-17.5); Lymphocytes % (auto) 9.9 % (10.0-50.0); Mean Corpuscular Hgb Conc. 33.6 g/dL (32.0-36.0); Mean Corpuscular Volume 92.4 fL (80.0-100.0); Monocytes % (auto) 10.1 % (0.0-12.0); Neutrophils # (auto) 7.9 uL; Neutrophils % (auto) 76.8 % (37.0-80.0); Platelet Count (auto) 347 10^3/uL (140-450); Red Blood Cells 3.47 10^6/uL (4.5-5.90); Red Cell Distribution Width 14.5 % (11.8-14.3); White Blood Cell 10.3 10^3/uL (4.4-10.8)
[2018-04-23 04:17] LABS: Albumin 2.2 g/dL (3.4-5.0); BUN/Creatinine Ratio 14.1; Bilirubin, Total 0.5 mg/dL (0.2-1.0); Calcium 6.5 mg/dL (8.5-10.1); Magnesium 2.1 mg/dL (1.6-2.6); Phosphorus 3.7 mg/dL (2.5-4.90); Potassium 4.4 mmol/L (3.5-5.1); Total Protein 6.7 g/dL (6.4-8.2)
[2018-04-23] MEDS: ACCU-CHEK COMFORT CURVE STRIP VI SCH ×4 (06:09→18:27)
[2018-04-23] MEDS: InsuLIN REG 1unit/0.01ml Soln (100units/ml) SC SCH ×4 (06:44→18:00)
[2018-04-23] MEDS ORDERED: SOD CHL 0.45% 1,000 ML IV ONE (07:15)
[2018-04-23] MEDS: LEVOTHYROXINE SODIUM 100 MCG/5 ML INJ IV SCH (10:02)
[2018-04-23] MEDS: FAMOTIDINE (10MG/ML) 2ML VL IV SCH ×2 (10:03→21:09)
[2018-04-23] MEDS: HYDROmorphone HCL 2 MG/ML VL IV PRN ×3 (10:03→21:09)
[2018-04-23] MEDS: LEVETIRACETAM INJ 1,000 MG in D5W 5% 100 ML IV SCH ×2 (10:36→22:40)
[2018-04-23] MEDS ORDERED: D5W 5% IV ONE (11:00)
[2018-04-23] MEDS ORDERED: CALCIUM GLUC IV ONE (11:00)
[2018-04-23] MEDS ORDERED: TPN PER PHARMACY IV NR ×9 (20:00)
[2018-04-23] MEDS: ONDANSETRON HCL 4 MG/2 ML VIAL IV PRN (21:09)
[2018-04-24] MEDS: PIPERACILLIN-TAZOB 3.375GM 100 ML IV SCH ×4 (00:01→18:49)
[2018-04-24] MEDS: ACCU-CHEK COMFORT CURVE STRIP VI SCH ×5 (00:02→23:56)
[2018-04-24] MEDS: ALBUTEROL SULF 2.5 MG/0.5ML(0.5%) NEB SOLN NEB SCH ×4 (00:51→19:51)
[2018-04-24] MEDS: IPRATROPIUM BROM 0.5 MG/2.5ML INH SOL NEB SCH ×4 (00:51→19:51)
[2018-04-24] MEDS: ONDANSETRON HCL 4 MG/2 ML VIAL IV PRN ×2 (02:14→21:22)
[2018-04-24] MEDS: HYDROmorphone HCL 2 MG/ML VL IV PRN ×4 (02:14→21:22)
[2018-04-24 04:59] VITALS: BP 122/70
[2018-04-24 05:54] LABS: Basophils # (auto) 0.1 uL; Eosinophils # (auto) 0.4 uL; Eosinophils % (auto) 3.4 % (0.0-7.0); Hematocrit 33.5 % (41.0-53.0); Hemoglobin 11.2 g/dL (13.5-17.5); Lymphocytes # (auto) 1.1 uL; Lymphocytes % (auto) 10.6 % (10.0-50.0); Mean Corpuscular Hemoglobin 31.6 pg (28.0-32.0); Mean Corpuscular Hgb Conc. 33.4 g/dL (32.0-36.0); Mean Corpuscular Volume 94.7 fL (80.0-100.0); Monocytes # (auto) 1.1 uL; Monocytes % (auto) 10.9 % (0.0-12.0); Neutrophils # (auto) 7.7 uL; Neutrophils % (auto) 74.1 % (37.0-80.0); Nucleated Red Blood Cells % 0.1 %; Platelet Count (auto) 342 10^3/uL (140-450); Red Blood Cells 3.54 10^6/uL (4.5-5.90); Red Cell Distribution Width 14.6 % (11.8-14.3); White Blood Cell 10.4 10^3/uL (4.4-10.8)
[2018-04-24] MEDS: InsuLIN REG 1unit/0.01ml Soln (100units/ml) SC SCH ×5 (06:00→23:57)
[2018-04-24 06:09] LABS: BUN/Creatinine Ratio 14.6; Calcium 6.5 mg/dL (8.5-10.1); Magnesium 2.7 mg/dL (1.6-2.6); Phosphorus 4.4 mg/dL (2.5-4.90); Potassium 5.1 mmol/L (3.5-5.1)
[2018-04-24] MEDS: SOD CHL 0.45% 1,000 ML IV SCH ×2 (07:15→16:59)
[2018-04-24 09:00] VITALS: BP 123/77
[2018-04-24] MEDS: FAMOTIDINE (10MG/ML) 2ML VL IV SCH ×2 (09:10→21:22)
[2018-04-24] MEDS: LEVOTHYROXINE SODIUM 100 MCG/5 ML INJ IV SCH (09:14)
[2018-04-24 10:00] LABS: Albumin 2.3 g/dL (3.4-5.0); Bilirubin, Total 0.5 mg/dL (0.2-1.0); Calcium 6.6 mg/dL (8.5-10.1); Potassium 4.9 mmol/L (3.5-5.1)
[2018-04-24] MEDS: LEVETIRACETAM INJ 1,000 MG in D5W 5% 100 ML IV SCH ×2 (10:11→22:26)
[2018-04-24] MEDS ORDERED: CALCIUM GLUC 4.65meq/50ml D5AE 50 ML IV SCH (10:45)
[2018-04-24] MEDS: CALCIUM GLUC 4.65meq/50ml D5AE 50 ML IV SCH ×3 (12:00→17:30)
[2018-04-24 13:00] VITALS: BP_SYST 122; BP_SYST 123; BP_DIAS 77; BP_DIAS 80
[2018-04-24 16:51] VITALS: BP 137/84
[2018-04-24] MEDS ORDERED: TPN PER PHARMACY IV NR ×7 (20:00)
[2018-04-24 21:30] VITALS: BP 118/73
[2018-04-25] MEDS: PIPERACILLIN-TAZOB 3.375GM 100 ML IV SCH ×4 (00:21→19:13)
[2018-04-25] MEDS: ALBUTEROL SULF 2.5 MG/0.5ML(0.5%) NEB SOLN NEB SCH ×4 (00:52→18:31)
[2018-04-25] MEDS: IPRATROPIUM BROM 0.5 MG/2.5ML INH SOL NEB SCH ×4 (00:52→18:31)
[2018-04-25] MEDS: SOD CHL 0.45% 1,000 ML IV SCH (02:27)
[2018-04-25 04:35] VITALS: BP 126/71
[2018-04-25] MEDS: ACCU-CHEK COMFORT CURVE STRIP VI SCH ×3 (05:58→17:44)
[2018-04-25] MEDS: InsuLIN REG 1unit/0.01ml Soln (100units/ml) SC SCH ×3 (05:59→18:06)
[2018-04-25 09:00] VITALS: BP 113/73
[2018-04-25 09:14] LABS: Albumin 2.2 g/dL (3.4-5.0); BUN/Creatinine Ratio 12.7; Magnesium 2.3 mg/dL (1.6-2.6); Potassium 4.4 mmol/L (3.5-5.1)
[2018-04-25 09:18] LABS: Bilirubin, Total 0.5 mg/dL (0.2-1.0); Phosphorus 3.6 mg/dL (2.5-4.90)
[2018-04-25] MEDS: LEVOTHYROXINE SODIUM 100 MCG/5 ML INJ IV SCH (10:22)
[2018-04-25] MEDS: FAMOTIDINE (10MG/ML) 2ML VL IV SCH ×2 (10:23→22:00)
[2018-04-25] MEDS: LEVETIRACETAM INJ 1,000 MG in D5W 5% 100 ML IV SCH ×2 (10:40→22:01)
[2018-04-25 13:00] VITALS: BP 137/71
[2018-04-25] MEDS: ONDANSETRON HCL 4 MG/2 ML VIAL IV PRN (15:52)
[2018-04-25] MEDS: HYDROmorphone HCL 2 MG/ML VL IV PRN (15:52)
[2018-04-25 16:43] VITALS: BP 119/67
[2018-04-25] MEDS ORDERED: TPN PER PHARMACY IV NR ×9 (20:00)
[2018-04-25 21:39] VITALS: BP 118/65
[2018-04-26] MEDS: ACCU-CHEK COMFORT CURVE STRIP VI SCH ×4 (00:08→17:41)
[2018-04-26] MEDS: IPRATROPIUM BROM 0.5 MG/2.5ML INH SOL NEB SCH ×4 (00:25→18:55)
[2018-04-26] MEDS: ALBUTEROL SULF 2.5 MG/0.5ML(0.5%) NEB SOLN NEB SCH ×4 (00:25→18:55)
[2018-04-26 00:29] VITALS: BP 118/65
[2018-04-26] MEDS: PIPERACILLIN-TAZOB 3.375GM 100 ML IV SCH ×4 (00:40→18:23)
[2018-04-26 04:46] LABS: Basophils # (auto) 0.1 uL; Eosinophils # (auto) 0.3 uL; Eosinophils % (auto) 3.3 % (0.0-7.0); Hematocrit 32.2 % (41.0-53.0); Hemoglobin 10.8 g/dL (13.5-17.5); Lymphocytes # (auto) 0.9 uL; Lymphocytes % (auto) 10.9 % (10.0-50.0); Mean Corpuscular Hemoglobin 31.3 pg (28.0-32.0); Mean Corpuscular Hgb Conc. 33.6 g/dL (32.0-36.0); Monocytes # (auto) 0.9 uL; Monocytes % (auto) 11.1 % (0.0-12.0); Neutrophils # (auto) 6.3 uL; Neutrophils % (auto) 73.7 % (37.0-80.0); Nucleated Red Blood Cells % 0.1 %; Platelet Count (auto) 379 10^3/uL (140-450); Red Blood Cells 3.47 10^6/uL (4.5-5.90); Red Cell Distribution Width 14.7 % (11.8-14.3); White Blood Cell 8.6 10^3/uL (4.4-10.8)
[2018-04-26 05:18] LABS: Albumin 2.4 g/dL (3.4-5.0); BUN/Creatinine Ratio 11.6; Bilirubin, Total 0.5 mg/dL (0.2-1.0); Calcium 6.8 mg/dL (8.5-10.1); Magnesium 2.3 mg/dL (1.6-2.6); Phosphorus 3.2 mg/dL (2.5-4.90); Potassium 4.3 mmol/L (3.5-5.1); Total Protein 7.5 g/dL (6.4-8.2)
[2018-04-26 05:26] VITALS: BP 112/64
[2018-04-26] MEDS: InsuLIN REG 1unit/0.01ml Soln (100units/ml) SC SCH ×4 (05:47→17:46)
[2018-04-26 09:01] VITALS: BP 119/74
[2018-04-26] MEDS: FAMOTIDINE (10MG/ML) 2ML VL IV SCH ×2 (09:51→21:45)
[2018-04-26] MEDS: LEVOTHYROXINE SODIUM 100 MCG/5 ML INJ IV SCH (09:51)
[2018-04-26] MEDS: LEVETIRACETAM INJ 1,000 MG in D5W 5% 100 ML IV SCH ×2 (10:46→21:56)
[2018-04-26] MEDS: ONDANSETRON HCL 4 MG/2 ML VIAL IV PRN (11:04)
[2018-04-26] MEDS: HYDROmorphone HCL 2 MG/ML VL IV PRN ×3 (11:04→21:45)
[2018-04-26 12:14] VITALS: BP 117/68
[2018-04-26 16:47] VITALS: BP 116/68
[2018-04-26] MEDS ORDERED: SODIUM CHLORIDE IV NR ×9 (20:00)
[2018-04-26] MEDS ORDERED: [UNRECOGNIZED DRUG - OTHER] IV NR ×9 (20:00)
[2018-04-26] MEDS ORDERED: POTASSIUM CHLORIDE IV NR ×9 (20:00)
[2018-04-26] MEDS ORDERED: FAT EMULSION IV NR ×9 (20:00)
[2018-04-26 21:30] VITALS: BP 121/62
[2018-04-27] MEDS: ACCU-CHEK COMFORT CURVE STRIP VI SCH ×4 (00:23→17:35)
[2018-04-27] MEDS: PIPERACILLIN-TAZOB 3.375GM 100 ML IV SCH ×4 (00:25→18:15)
[2018-04-27] MEDS: InsuLIN REG 1unit/0.01ml Soln (100units/ml) SC SCH ×4 (00:25→17:44)
[2018-04-27] MEDS: ALBUTEROL SULF 2.5 MG/0.5ML(0.5%) NEB SOLN NEB SCH ×4 (00:50→18:24)
[2018-04-27] MEDS: IPRATROPIUM BROM 0.5 MG/2.5ML INH SOL NEB SCH ×4 (00:51→18:24)
[2018-04-27] MEDS: HYDROmorphone HCL 2 MG/ML VL IV PRN ×5 (02:16→20:14)
[2018-04-27 05:00] VITALS: BP 121/73
[2018-04-27 05:43] LABS: Basophils # (auto) 0.1 uL; Basophils % (auto) 1.2 % (0.0-2.0); Eosinophils # (auto) 0.3 uL; Eosinophils % (auto) 3.2 % (0.0-7.0); Hematocrit 31.6 % (41.0-53.0); Hemoglobin 10.8 g/dL (13.5-17.5); Mean Corpuscular Hemoglobin 31.4 pg (28.0-32.0); Mean Corpuscular Volume 92.4 fL (80.0-100.0); Monocytes # (auto) 1.1 uL; Monocytes % (auto) 12.5 % (0.0-12.0); Neutrophils # (auto) 6.1 uL; Neutrophils % (auto) 71.1 % (37.0-80.0); Platelet Count (auto) 345 10^3/uL (140-450); Red Blood Cells 3.43 10^6/uL (4.5-5.90); Red Cell Distribution Width 14.6 % (11.8-14.3); White Blood Cell 8.5 10^3/uL (4.4-10.8)
[2018-04-27 06:23] LABS: Albumin 2.2 g/dL (3.4-5.0); BUN/Creatinine Ratio 11.2; Bilirubin, Total 0.4 mg/dL (0.2-1.0); Calcium 6.8 mg/dL (8.5-10.1); Magnesium 2.3 mg/dL (1.6-2.6); Phosphorus 2.8 mg/dL (2.5-4.90); Potassium 4.2 mmol/L (3.5-5.1); Total Protein 7.4 g/dL (6.4-8.2)
[2018-04-27 09:00] VITALS: BP 133/71
[2018-04-27] MEDS: LEVOTHYROXINE SODIUM 100 MCG/5 ML INJ IV SCH (10:21)
[2018-04-27] MEDS: FAMOTIDINE (10MG/ML) 2ML VL IV SCH ×2 (10:21→21:17)
[2018-04-27] MEDS ORDERED: CALCIUM GLUC 4.65meq/50ml D5AE 50 ML IV ONE (11:00)
[2018-04-27] MEDS: LEVETIRACETAM INJ 1,000 MG in D5W 5% 100 ML IV SCH ×2 (11:09→21:18)
[2018-04-27 13:00] VITALS: BP 134/78
[2018-04-27 16:16] VITALS: BP 122/72
[2018-04-27] MEDS ORDERED: TPN PER PHARMACY IV NR ×10 (20:00)
[2018-04-27] MEDS: ONDANSETRON HCL 4 MG/2 ML VIAL IV PRN (20:13)
[2018-04-27 21:53] VITALS: BP 119/68
[2018-04-28] MEDS: HYDROmorphone HCL 2 MG/ML VL IV PRN ×6 (00:16→21:11)
[2018-04-28] MEDS: ONDANSETRON HCL 4 MG/2 ML VIAL IV PRN ×4 (00:16→16:45)
[2018-04-28] MEDS: ACCU-CHEK COMFORT CURVE STRIP VI SCH ×4 (00:16→18:01)
[2018-04-28] MEDS: PIPERACILLIN-TAZOB 3.375GM 100 ML IV SCH ×4 (00:38→18:23)
[2018-04-28] MEDS: IPRATROPIUM BROM 0.5 MG/2.5ML INH SOL NEB SCH ×5 (00:52→23:38)
[2018-04-28] MEDS: ALBUTEROL SULF 2.5 MG/0.5ML(0.5%) NEB SOLN NEB SCH ×5 (00:52→23:38)
[2018-04-28 05:00] VITALS: BP 126/72
[2018-04-28 06:16] LABS: Albumin 2.2 g/dL (3.4-5.0); BUN/Creatinine Ratio 11.3; Bilirubin, Total 0.6 mg/dL (0.2-1.0); Calcium 6.8 mg/dL (8.5-10.1); Magnesium 1.9 mg/dL (1.6-2.6); Phosphorus 3.4 mg/dL (2.5-4.90); Potassium 4.5 mmol/L (3.5-5.1); Total Protein 7.4 g/dL (6.4-8.2)
[2018-04-28 06:23] LABS: Pre Albumin 13.4 mg/dL (20.0-40.0)
[2018-04-28] MEDS: InsuLIN REG 1unit/0.01ml Soln (100units/ml) SC SCH ×4 (06:23→18:23)
[2018-04-28 09:00] VITALS: BP 129/68
[2018-04-28] MEDS: FAMOTIDINE (10MG/ML) 2ML VL IV SCH ×2 (09:39→21:46)
[2018-04-28] MEDS: LEVOTHYROXINE SODIUM 100 MCG/5 ML INJ IV SCH (09:39)
[2018-04-28] MEDS: LEVETIRACETAM INJ 1,000 MG in D5W 5% 100 ML IV SCH ×2 (09:57→21:46)
[2018-04-28 13:00] VITALS: BP 116/68
[2018-04-28] MEDS ORDERED: CALCIUM GLUC 4.65meq/50ml D5AE 50 ML IV ONE (13:00)
[2018-04-28 16:53] VITALS: BP 129/73
[2018-04-28] MEDS ORDERED: TPN PER PHARMACY IV NR ×9 (20:00)
[2018-04-28 21:30] VITALS: BP 117/53
[2018-04-28 21:36] VITALS: BP 129/73
[2018-04-29] MEDS: PIPERACILLIN-TAZOB 3.375GM 100 ML IV SCH ×4 (00:06→18:45)
[2018-04-29] MEDS: ACCU-CHEK COMFORT CURVE STRIP VI SCH ×5 (00:06→23:22)
[2018-04-29] MEDS: InsuLIN REG 1unit/0.01ml Soln (100units/ml) SC SCH ×5 (00:07→23:22)
[2018-04-29] MEDS: ONDANSETRON HCL 4 MG/2 ML VIAL IV PRN ×5 (01:55→18:55)
[2018-04-29] MEDS: HYDROmorphone HCL 2 MG/ML VL IV PRN ×6 (01:55→23:07)
[2018-04-29 05:00] VITALS: BP 111/57
[2018-04-29 06:15] LABS: Albumin 2.1 g/dL (3.4-5.0); BUN/Creatinine Ratio 12.8; Bilirubin, Total 0.4 mg/dL (0.2-1.0); Calcium 6.7 mg/dL (8.5-10.1); Magnesium 2.3 mg/dL (1.6-2.6); Phosphorus 2.9 mg/dL (2.5-4.90); Potassium 4.1 mmol/L (3.5-5.1); Total Protein 7.2 g/dL (6.4-8.2)
[2018-04-29] MEDS: ALBUTEROL SULF 2.5 MG/0.5ML(0.5%) NEB SOLN NEB SCH ×3 (07:08→18:50)
[2018-04-29] MEDS: IPRATROPIUM BROM 0.5 MG/2.5ML INH SOL NEB SCH ×3 (07:09→18:50)
[2018-04-29 09:00] VITALS: BP 112/70
[2018-04-29] MEDS: LEVOTHYROXINE SODIUM 100 MCG/5 ML INJ IV SCH (10:26)
[2018-04-29] MEDS: FAMOTIDINE (10MG/ML) 2ML VL IV SCH ×2 (10:26→22:29)
[2018-04-29] MEDS: LEVETIRACETAM INJ 1,000 MG in D5W 5% 100 ML IV SCH ×2 (11:13→22:29)
[2018-04-29] MEDS ORDERED: CALCIUM GLUC 4.65meq/50ml D5AE 50 ML IV ONE (13:00)
[2018-04-29 15:29] VITALS: BP 115/75
[2018-04-29 17:00] VITALS: BP 118/70
[2018-04-29] MEDS ORDERED: TPN PER PHARMACY IV NR ×10 (20:00)
[2018-04-29 21:46] VITALS: BP 129/76
[2018-04-30] MEDS: PIPERACILLIN-TAZOB 3.375GM 100 ML IV SCH ×4 (01:03→19:23)
[2018-04-30] MEDS: IPRATROPIUM BROM 0.5 MG/2.5ML INH SOL NEB SCH ×4 (01:06→19:26)
[2018-04-30] MEDS: ALBUTEROL SULF 2.5 MG/0.5ML(0.5%) NEB SOLN NEB SCH ×4 (01:06→19:26)
[2018-04-30] MEDS: HYDROmorphone HCL 2 MG/ML VL IV PRN ×4 (03:10→16:31)
[2018-04-30] MEDS: ONDANSETRON HCL 4 MG/2 ML VIAL IV PRN ×2 (03:10→16:31)
[2018-04-30 04:46] VITALS: BP 131/72
[2018-04-30] MEDS: InsuLIN REG 1unit/0.01ml Soln (100units/ml) SC SCH ×3 (06:00→17:44)
[2018-04-30] MEDS: ACCU-CHEK COMFORT CURVE STRIP VI SCH ×3 (06:19→17:44)
[2018-04-30 06:52] LABS: Albumin 2.1 g/dL (3.4-5.0); BUN/Creatinine Ratio 11.4; Bilirubin, Total 0.4 mg/dL (0.2-1.0); Calcium 6.9 mg/dL (8.5-10.1); Magnesium 2.3 mg/dL (1.6-2.6); Phosphorus 2.7 mg/dL (2.5-4.90); Potassium 3.9 mmol/L (3.5-5.1); Total Protein 7.4 g/dL (6.4-8.2)
[2018-04-30 08:48] VITALS: BP 138/74
[2018-04-30] MEDS: LEVOTHYROXINE SODIUM 100 MCG/5 ML INJ IV SCH (11:03)
[2018-04-30] MEDS: LEVETIRACETAM INJ 1,000 MG in D5W 5% 100 ML IV SCH (11:03)
[2018-04-30] MEDS: FAMOTIDINE (10MG/ML) 2ML VL IV SCH ×2 (11:03→22:16)
[2018-04-30 13:00] VITALS: BP 138/71
[2018-04-30 16:50] VITALS: BP 140/75
[2018-04-30] MEDS ORDERED: TPN PER PHARMACY IV NR ×10 (20:00)
[2018-04-30 21:46] VITALS: BP 110/62
[2018-05-01] MEDS: ACCU-CHEK COMFORT CURVE STRIP VI SCH ×5 (00:05→23:45)
[2018-05-01] MEDS: IPRATROPIUM BROM 0.5 MG/2.5ML INH SOL NEB SCH ×5 (00:23→23:13)
[2018-05-01] MEDS: ALBUTEROL SULF 2.5 MG/0.5ML(0.5%) NEB SOLN NEB SCH ×5 (00:23→23:13)
[2018-05-01] MEDS: PIPERACILLIN-TAZOB 3.375GM 100 ML IV SCH ×4 (00:31→19:30)
[2018-05-01] MEDS ORDERED: LEVETIRACETAM 500 MG/5ML INJ IV ONE (01:42)
[2018-05-01] MEDS: LEVETIRACETAM INJ 1,000 MG in D5W 5% 100 ML IV SCH ×3 (02:08→21:05)
[2018-05-01 04:46] VITALS: BP 133/77
[2018-05-01 05:42] LABS: BUN/Creatinine Ratio 11.3; Calcium 6.5 mg/dL (8.5-10.1); Magnesium 2.1 mg/dL (1.6-2.6); Phosphorus 2.5 mg/dL (2.5-4.90); Potassium 3.7 mmol/L (3.5-5.1)
[2018-05-01] MEDS: InsuLIN REG 1unit/0.01ml Soln (100units/ml) SC SCH ×5 (05:51→23:45)
[2018-05-01 09:00] VITALS: BP 119/67
[2018-05-01] MEDS: LEVOTHYROXINE SODIUM 100 MCG/5 ML INJ IV SCH (10:00)
[2018-05-01] MEDS: FAMOTIDINE (10MG/ML) 2ML VL IV SCH ×2 (10:00→21:05)
[2018-05-01 13:00] VITALS: BP 124/82
[2018-05-01 17:00] VITALS: BP 156/84
[2018-05-01 18:20] VITALS: BP_SYST 123; BP_SYST 156; BP_DIAS 60; BP_DIAS 84
[2018-05-01] MEDS ORDERED: TPN PER PHARMACY IV SCH (20:00)
[2018-05-01] MEDS ORDERED: FAT EMULSION IV NR ×10 (20:00)
[2018-05-01] MEDS ORDERED: SODIUM CHLORIDE IV NR ×10 (20:00)
[2018-05-01] MEDS ORDERED: [UNRECOGNIZED DRUG - OTHER] IV NR ×10 (20:00)
[2018-05-01] MEDS ORDERED: SODIUM PHOSPHATES IV NR ×10 (20:00)
[2018-05-01 22:00] VITALS: BP 128/76
[2018-05-02] MEDS: PIPERACILLIN-TAZOB 3.375GM 100 ML IV SCH ×3 (01:22→13:33)
[2018-05-02 05:00] VITALS: BP 120/68
[2018-05-02] MEDS: ACCU-CHEK COMFORT CURVE STRIP VI SCH ×4 (05:42→23:49)
[2018-05-02] MEDS: InsuLIN REG 1unit/0.01ml Soln (100units/ml) SC SCH ×4 (05:43→23:49)
[2018-05-02 06:29] LABS: Albumin 2.1 g/dL (3.4-5.0); BUN/Creatinine Ratio 13.8; Bilirubin, Total 0.3 mg/dL (0.2-1.0); Calcium 6.5 mg/dL (8.5-10.1); Magnesium 2.2 mg/dL (1.6-2.6); Phosphorus 2.9 mg/dL (2.5-4.90); Potassium 3.5 mmol/L (3.5-5.1); Total Protein 7.4 g/dL (6.4-8.2)
[2018-05-02] MEDS: ALBUTEROL SULF 2.5 MG/0.5ML(0.5%) NEB SOLN NEB SCH ×3 (07:00→19:35)
[2018-05-02] MEDS: IPRATROPIUM BROM 0.5 MG/2.5ML INH SOL NEB SCH ×3 (07:00→19:35)
[2018-05-02 09:00] VITALS: BP 147/79
[2018-05-02] MEDS: LEVOTHYROXINE SODIUM 100 MCG/5 ML INJ IV SCH (10:27)
[2018-05-02] MEDS: FAMOTIDINE (10MG/ML) 2ML VL IV SCH ×2 (10:27→22:24)
[2018-05-02] MEDS: LEVETIRACETAM INJ 1,000 MG in D5W 5% 100 ML IV SCH ×2 (11:10→22:23)
[2018-05-02] MEDS ORDERED: CALCIUM GLUC 4.65meq/50ml D5AE 50 ML IV ONE (12:00)
[2018-05-02 12:37] LABS: Basophils # (auto) 0.1 uL; Basophils % (auto) 1.2 % (0.0-2.0); Eosinophils # (auto) 0.2 uL; Eosinophils % (auto) 2.7 % (0.0-7.0); Hematocrit 31.8 % (41.0-53.0); Hemoglobin 10.5 g/dL (13.5-17.5); Lymphocytes # (auto) 1.4 uL; Lymphocytes % (auto) 14.6 % (10.0-50.0); Mean Corpuscular Hemoglobin 30.2 pg (28.0-32.0); Mean Corpuscular Hgb Conc. 33.1 g/dL (32.0-36.0); Mean Corpuscular Volume 91.2 fL (80.0-100.0); Monocytes # (auto) 1.1 uL; Monocytes % (auto) 11.6 % (0.0-12.0); Neutrophils # (auto) 6.5 uL; Neutrophils % (auto) 69.9 % (37.0-80.0); Nucleated Red Blood Cells % 0.1 %; Platelet Count (auto) 324 10^3/uL (140-450); Red Blood Cells 3.49 10^6/uL (4.5-5.90); Red Cell Distribution Width 14.2 % (11.8-14.3); White Blood Cell 9.4 10^3/uL (4.4-10.8)
[2018-05-02 13:00] VITALS: BP 155/75
[2018-05-02 17:00] VITALS: BP 144/84
[2018-05-02] MEDS ORDERED: SODIUM CHLORIDE IV NR ×10 (20:00)
[2018-05-02] MEDS ORDERED: SODIUM PHOSPHATES IV NR ×10 (20:00)
[2018-05-02] MEDS ORDERED: FAT EMULSION IV NR ×10 (20:00)
[2018-05-02] MEDS ORDERED: [UNRECOGNIZED DRUG - OTHER] IV NR ×10 (20:00)
[2018-05-02] MEDS: HYDROmorphone HCL 2 MG/ML VL IV PRN (20:24)
[2018-05-02 21:42] VITALS: BP 138/79
[2018-05-03] MEDS: IPRATROPIUM BROM 0.5 MG/2.5ML INH SOL NEB SCH ×4 (00:47→18:36)
[2018-05-03] MEDS: ALBUTEROL SULF 2.5 MG/0.5ML(0.5%) NEB SOLN NEB SCH ×4 (00:47→18:35)
[2018-05-03] MEDS: HYDROmorphone HCL 2 MG/ML VL IV PRN ×5 (01:08→20:47)
[2018-05-03 05:37] VITALS: BP 133/71
[2018-05-03] MEDS: ACCU-CHEK COMFORT CURVE STRIP VI SCH ×3 (05:44→17:23)
[2018-05-03] MEDS: InsuLIN REG 1unit/0.01ml Soln (100units/ml) SC SCH ×3 (05:44→17:22)
[2018-05-03 05:56] LABS: Pre Albumin 15.3 mg/dL (20.0-40.0)
[2018-05-03 06:16] LABS: Albumin 2.3 g/dL (3.4-5.0); BUN/Creatinine Ratio 12.6; Bilirubin, Total 0.4 mg/dL (0.2-1.0); Calcium 6.7 mg/dL (8.5-10.1); Magnesium 2.5 mg/dL (1.6-2.6); Phosphorus 3.4 mg/dL (2.5-4.90); Potassium 3.5 mmol/L (3.5-5.1); Total Protein 8.3 g/dL (6.4-8.2)
[2018-05-03 08:00] VITALS: BP 131/71
[2018-05-03] MEDS ORDERED: CALCIUM GLUC 4.65meq/50ml D5AE 50 ML IV ONE (10:00)
[2018-05-03] MEDS: LEVOTHYROXINE SODIUM 100 MCG/5 ML INJ IV SCH (10:09)
[2018-05-03] MEDS: ONDANSETRON HCL 4 MG/2 ML VIAL IV PRN ×2 (10:09→15:38)
[2018-05-03] MEDS: FAMOTIDINE (10MG/ML) 2ML VL IV SCH ×2 (10:09→21:58)
[2018-05-03] MEDS: LEVETIRACETAM INJ 1,000 MG in D5W 5% 100 ML IV SCH ×2 (10:09→21:58)
[2018-05-03 12:00] VITALS: BP 109/71
[2018-05-03 17:00] VITALS: BP 106/68
[2018-05-03] MEDS ORDERED: TPN PER PHARMACY IV NR ×10 (20:00)
[2018-05-03 22:00] VITALS: BP 124/72
[2018-05-04] MEDS: IPRATROPIUM BROM 0.5 MG/2.5ML INH SOL NEB SCH ×4 (00:32→20:05)
[2018-05-04] MEDS: ALBUTEROL SULF 2.5 MG/0.5ML(0.5%) NEB SOLN NEB SCH ×4 (00:32→20:05)
[2018-05-04] MEDS: HYDROmorphone HCL 2 MG/ML VL IV PRN ×5 (05:03→23:07)
[2018-05-04 05:32] VITALS: BP 111/58
[2018-05-04] MEDS: InsuLIN REG 1unit/0.01ml Soln (100units/ml) SC SCH ×5 (06:00→23:14)
[2018-05-04] MEDS: ACCU-CHEK COMFORT CURVE STRIP VI SCH ×5 (06:22→23:15)
[2018-05-04 06:34] LABS: Albumin 2.3 g/dL (3.4-5.0); BUN/Creatinine Ratio 18.1; Bilirubin, Total 0.3 mg/dL (0.2-1.0); Calcium 6.4 mg/dL (8.5-10.1); Magnesium 2.2 mg/dL (1.6-2.6); Phosphorus 3.7 mg/dL (2.5-4.90); Potassium 3.8 mmol/L (3.5-5.1)
[2018-05-04 09:19] VITALS: BP 132/76
[2018-05-04] MEDS: FAMOTIDINE (10MG/ML) 2ML VL IV SCH ×2 (09:31→21:02)
[2018-05-04] MEDS: LEVOTHYROXINE SODIUM 100 MCG/5 ML INJ IV SCH (09:31)
[2018-05-04] MEDS: LEVETIRACETAM INJ 1,000 MG in D5W 5% 100 ML IV SCH ×2 (10:38→21:33)
[2018-05-04 12:54] VITALS: BP 149/86
[2018-05-04] MEDS ORDERED: CALCIUM CHL 100MG/ML 500 MG in D5W 5% 100 ML IV ONE (15:30)
[2018-05-04 16:59] VITALS: BP 108/60
[2018-05-04] MEDS ORDERED: TPN PER PHARMACY IV NR ×10 (20:00)
[2018-05-04 22:00] VITALS: BP 135/72
[2018-05-04 22:36] VITALS: BP 108/60
[2018-05-05] MEDS: IPRATROPIUM BROM 0.5 MG/2.5ML INH SOL NEB SCH ×2 (01:08→06:20)
[2018-05-05] MEDS: ALBUTEROL SULF 2.5 MG/0.5ML(0.5%) NEB SOLN NEB SCH ×2 (01:08→06:21)
[2018-05-05] MEDS: HYDROmorphone HCL 2 MG/ML VL IV PRN ×2 (03:46→10:35)
[2018-05-05 05:00] VITALS: BP 131/72
[2018-05-05] MEDS: ACCU-CHEK COMFORT CURVE STRIP VI SCH ×2 (05:48→12:09)
[2018-05-05] MEDS: InsuLIN REG 1unit/0.01ml Soln (100units/ml) SC SCH ×2 (05:48→12:00)
[2018-05-05 06:22] LABS: Albumin 2.3 g/dL (3.4-5.0); Bilirubin, Total 0.4 mg/dL (0.2-1.0); Calcium 6.7 mg/dL (8.5-10.1); Magnesium 2.3 mg/dL (1.6-2.6); Phosphorus 3.7 mg/dL (2.5-4.90); Potassium 4.1 mmol/L (3.5-5.1); Total Protein 8.3 g/dL (6.4-8.2)
[2018-05-05 09:00] VITALS: BP 125/70
[2018-05-05] MEDS ORDERED: CALCIUM GLUC 4.65meq/50ml D5AE 50 ML IV ONE (10:00)
[2018-05-05] MEDS: LEVOTHYROXINE SODIUM 100 MCG/5 ML INJ IV SCH (10:29)
[2018-05-05] MEDS: FAMOTIDINE (10MG/ML) 2ML VL IV SCH (10:38)
[2018-05-05] MEDS: LEVETIRACETAM INJ 1,000 MG in D5W 5% 100 ML IV SCH (12:06)
== END 2018-05-05 13:00 | DRG 853 ==
LOC: ER 11:08 → TELE 11:09 → ICU WEST 15:27 → TELE-WESTW 04-23 15:29
PROVIDERS: ADMIT Internal Medicine; ATTEND Internal Medicine Pulmonary Disease
PROC: 0DBN0ZZ Excision of Sigmoid Colon, Open Approach (ICD-10-PCS; 2018-04-13)
PROC: 0W9G0ZZ Drainage of Peritoneal Cavity, Open Approach (ICD-10-PCS; 2018-04-13)
PROC: 5A1955Z Respiratory Ventilation, Greater than 96 Consecutive Hours (ICD-10-PCS; 2018-04-13)
PROC: 0BH17EZ Insertion of Endotracheal Airway into Trachea, Via Natural or Artificial Opening (ICD-10-PCS; 2018-04-13)
PROC: 5A09357 Assistance with Respiratory Ventilation, Less than 24 Consecutive Hours, Continuous Positive Airway Pressure (ICD-10-PCS; 2018-04-13)
PROC: 0DCN0ZZ Extirpation of Matter from Sigmoid Colon, Open Approach (ICD-10-PCS; principal; 2018-04-13 15:11)
PROC: 02H633Z Insertion of Infusion Device into Right Atrium, Percutaneous Approach (ICD-10-PCS; 2018-04-14)
DX: A41.9 Sepsis, unspecified organism (principal); K63.1 Perforation of intestine (nontraumatic); K65.1 Peritoneal abscess; N17.0 Acute kidney failure with tubular necrosis; R65.21 Severe sepsis with septic shock; J18.9 Pneumonia, unspecified organism; J96.90 Respiratory failure, unspecified, unspecified whether with hypoxia or hypercapnia; E87.1 Hypo-osmolality and hyponatremia; I13.0 Hypertensive heart and chronic kidney disease with heart failure and stage 1 through stage 4 chronic kidney disease, or unspecified chronic kidney disease; I69.354 Hemiplegia and hemiparesis following cerebral infarction affecting left non-dominant side; J44.0 Chronic obstructive pulmonary disease with (acute) lower respiratory infection; N18.4 Chronic kidney disease, stage 4 (severe); E83.41 Hypermagnesemia; E83.51 Hypocalcemia; E87.6 Hypokalemia; E87.8 Other disorders of electrolyte and fluid balance, not elsewhere classified; E86.0 Dehydration; T18.4XXA Foreign body in colon, initial encounter; D64.9 Anemia, unspecified; E11.22 Type 2 diabetes mellitus with diabetic chronic kidney disease; E89.0 Postprocedural hypothyroidism; F17.210 Nicotine dependence, cigarettes, uncomplicated; G40.909 Epilepsy, unspecified, not intractable, without status epilepticus; I50.9 Heart failure, unspecified; Z79.82 Long term (current) use of aspirin; Z79.899 Other long term (current) drug therapy; Z79.4 Long term (current) use of insulin; Z85.850 Personal history of malignant neoplasm of thyroid; Z74.01 Bed confinement status
CPT/HCPCS: 36415; 36600; 71045; 71250; 74176; 76604; 80048; 80053; 80076; 81001; 82040; 82150; 82805; 82962; 83036; 83690; 83735; 84100; 84443; 84478; 85007; 85025; 85027; 85610; 85730; 86850; 86900; 86901; 87070; 87081; 87205; 92610; 93005; 93306; 94002; 94003; 94640; 94660; 94667; 94668; 94761; 96365; 96375; 97110; 97116; 97163; 97530; 99291; A6257; C9113; J0610; J0690; J1815; J2250; J2370; J2405; J2543; J2704; J3480; J3490; J7060; J7131; P9047

== ENCOUNTER 2019-09-21 20:48 | Inpatient (IN) | payer OTHER, MEDICAID ==
[~2019-09-21] VITALS: Ht 188 cm; Wt 112.5 kg
[~2019-09-21 20:48] MED LIST changes: -ONDANSETRON HCL 4 MG/2 ML VIAL IV ONE; -PHENYLEPHRINE INJ 10 MG/ML 5ML VIAL IV ONE; -PROPOFOL 10 MG/ML 20 ML IV ONE; -ROCURONIUM 10MG/ML 10ML VIAL IV ONE; -SODIUM CHLOR 0.9% PF (SALINE LOCK) 10ML VIAL/SYR IV ONE; -ceFAZolin 1GM VL IV ONE; -ePHEDrine SULFATE 50 MG/ML AMP IV ONE; -fentaNYL CITRATE 250 MCG/5 ML VL IV ONE
[2019-09-21] MEDS ORDERED: FAMOTIDINE (10MG/ML) 2ML VL IV ONE (21:15)
[2019-09-21] MEDS ORDERED: methylPREDNISolone SOD SUCC 125 MG/2 ML VL IV ONE (21:15)
[2019-09-21] MEDS ORDERED: diphenhdrAMINE HCL 50 MG/1 ML VL IV ONE (21:15)
[2019-09-21] MEDS ORDERED: EPINEPHrine HCL 1 MG/1 ML AMP SC ONE (21:30)
[2019-09-21 22:17] LABS: Band Neutrophils % (manual) 0; Basophils % (manual) 0 (0.0-2.0); Blast Cells 0; Metamyelocytes % 0; Myelocytes % 0; Promyelocytes % 0; Reactive Lymphocytes 0
[2019-09-21 22:33] LABS: Basophils # (auto) 0.1 uL; Basophils % (auto) 0.9 % (0.0-2.0); Eosinophils # (auto) 0.1 uL; Eosinophils % (auto) 2.5 % (0.0-7.0); Hematocrit 36.2 % (41.0-53.0); Hemoglobin 12.4 g/dL (13.5-17.5); Lymphocytes # (auto) 1.2 uL; Lymphocytes % (auto) 20.5 % (10.0-50.0); Mean Corpuscular Hemoglobin 30.9 pg (28.0-32.0); Mean Corpuscular Hgb Conc. 34.2 g/dL (32.0-36.0); Mean Corpuscular Volume 90.3 fL (80.0-100.0); Monocytes # (auto) 0.5 uL; Monocytes % (auto) 7.9 % (0.0-12.0); Neutrophils # (auto) 3.9 uL; Neutrophils % (auto) 68.2 % (37.0-80.0); Platelet Count (auto) 178 10^3/uL (140-450); Red Blood Cells 4.01 10^6/uL (4.5-5.90); Red Cell Distribution Width 14.5 % (11.8-14.3); White Blood Cell 5.8 10^3/uL (4.4-10.8)
[2019-09-21 22:37] LABS: Alanine Aminotransferase 33 U/L (16-61); Albumin 3.2 g/dL (3.4-5.0); Anion Gap 10 (5-15); Aspartate Aminotransferase 60 U/L (15-37); BUN/Creatinine Ratio 12.8; Blood Urea Nitrogen 25 mg/dL (7-18); Carbon Dioxide 26 mmol/L (21-32); Chloride 101 mmol/L (98-107); GFR African American 47 mL/min; GFR Non-African American 39 mL/min; Glucose 165 mg/dL (74-106); Potassium 3.2 mmol/L (3.5-5.1); Sodium 137 mmol/L (136-145)
[2019-09-21 22:42] LABS: Alkaline Phosphatase 67 U/L (45-117); Bilirubin, Total 0.4 mg/dL (0.2-1.0); Total Protein 7.4 g/dL (6.4-8.2)
[2019-09-21 22:51] LABS: INR 1.2 (0.9-1.15); Partial Thromboplastin Time 36.5 sec (23.64-32.05)
[2019-09-21 22:56] LABS: Lymphocytes % (manual) 21 (10.0-50.0)
[2019-09-21 22:57] LABS: Eosinophils % (manual) 2 (0-7); Monocytes % (manual) 8 (0-12)
[2019-09-21] MEDS ORDERED: CALCIUM GLUC 4.65meq/50ml D5AE 50 ML IV ONE (23:00)
[2019-09-21] MEDS: SODIUM CHLORIDE 0.9% 1,000 ML IV SCH (23:21)
[2019-09-21] MEDS ORDERED: ACETAMINOPHEN 325 MG TAB PO PRN (23:30)
[2019-09-21] MEDS ORDERED: DEXTROSE (50%) 50ML SYRG IV PRN (23:30)
[2019-09-21] MEDS ORDERED: DOCUSATE SOD 100 MG CAP PO PRN (23:30)
[2019-09-22] VITALS (49 sets, daily range): BP systolic 86–160; BP diastolic 50–111
[2019-09-22] MEDS: ACCU-CHEK COMFORT CURVE STRIP VI SCH ×6 (01:04→20:00)
[2019-09-22] MEDS: InsuLIN REG 1unit/0.01ml Soln (100units/ml) SC SCH ×6 (01:10→20:00)
--- NOTE | 2019-09-22 01:40 | NUR ---
Telemetry admit from [facility]ACHU[facility] admitted to Telemetry unit. Patient oriented to NOEL CORDERO RN primary RN, unit, room, bed, and unit policies regarding patient care and visiting hours. Patient now on continuous telemetry monitoring, tele box # 8 and telemetry reading on arrival to unit is 79. Patient placed on bedside oxygen 4L via oxymizer, weighed by bedscale and encouraged to call if they need something, call light within reach. All questions and concerns addressed, patient verbalized understanding.
[2019-09-22] MEDS ORDERED: LORazepam 2MG/ML-1ML VIAL IV PRN (02:30)
[2019-09-22] MEDS: MORPHINE SULFATE 4 MG/ML SYR/VIAL IV PRN ×2 (03:21→08:42)
[2019-09-22 06:24] LABS: Basophils # (auto) 0 uL; Basophils % (auto) 0.3 % (0.0-2.0); Eosinophils # (auto) 0 uL; Eosinophils % (auto) 0.1 % (0.0-7.0); Hematocrit 36.3 % (41.0-53.0); Hemoglobin 12.4 g/dL (13.5-17.5); Lymphocytes # (auto) 0.3 uL; Lymphocytes % (auto) 4.6 % (10.0-50.0); Mean Corpuscular Hemoglobin 30.6 pg (28.0-32.0); Mean Corpuscular Hgb Conc. 34.2 g/dL (32.0-36.0); Mean Corpuscular Volume 89.6 fL (80.0-100.0); Monocytes # (auto) 0.1 uL; Monocytes % (auto) 1.2 % (0.0-12.0); Neutrophils # (auto) 7.1 uL; Neutrophils % (auto) 93.8 % (37.0-80.0); Platelet Count (auto) 195 10^3/uL (140-450); Red Blood Cells 4.05 10^6/uL (4.5-5.90); Red Cell Distribution Width 14.2 % (11.8-14.3); White Blood Cell 7.5 10^3/uL (4.4-10.8)
[2019-09-22 06:39] LABS: BUN/Creatinine Ratio 13.5; Potassium 3.2 mmol/L (3.5-5.1)
--- NOTE | 2019-09-22 06:40 | NUR ---
Calcium level 5.5 Patient calcium level 5.5 and potassium level 3.2 Edwar Hospitalist New orders for Calcium Gluconate 1gm IV TWICE and 40 Meq of potassium PO ONCE. Orders read back and verified. Will carry out. Addendum: 09/22/19 at 0748 by NOEL CORDERO RN RN Time clarification [id number]
[2019-09-22 06:42] LABS: Calcium 5.5 mg/dL (8.5-10.1)
[2019-09-22 06:45] LABS: Urine Bacteria NONE SEEN /hpf (None Seen); Urine Blood TRACE /uL (Negative); Urine Hyaline Cast FEW /lpf (0 - 2); Urine Mucus FEW (None Seen); Urine Specific Gravity 1.024 (1.001-1.035); Urine WBC 1 /hpf (0 - 3)
[2019-09-22 06:55] LABS: Alcohol, Urine < 3.0 mg/dL (0-5); Amphetamine Screen, Urine POSITIVE (NEGATIVE); Barbiturate Scree,Urine NEGATIVE (NEGATIVE); Benzodiazephine Screen, Urine NEGATIVE (NEGATIVE); Cannabinoid Screen, Urine NEGATIVE (NEGATIVE); Cocaine Screen, Urine NEGATIVE (NEGATIVE); Opiate Scree,Urine NEGATIVE (NEGATIVE)
[2019-09-22] MEDS: INSULIN NPH Isophane (HUMAN) 1unit/0.01ml Susp(100units/ml) SC SCH ×4 (06:59→22:17)
[2019-09-22] MEDS: LEVOTHYROXINE SODIUM 100 MCG TAB PO SCH (06:59)
[2019-09-22] MEDS ORDERED: POTASSIUM CHL 20 Meq TABLET PO ONE (07:00)
[2019-09-22] MEDS ORDERED: CALCIUM GLUC 4.65meq/50ml D5AE 50 ML IV ONE ×2 (07:00→08:00)
[2019-09-22 07:01] LABS: Phencyclidine Screen, Urine NEGATIVE (NEGATIVE)
--- NOTE | 2019-09-22 07:20 | NUR ---
Opening Shift Note Assumed care of patient, resting in bed with eyes closed. No S/S of distress/SOB or pain. Patient is on 4L/min oxymizer with seizure precautions in place. Bed is set in lowest locked position with side rails up x2 for safety and call light is within reach. Will continue to monitor for changes Q1hr and PRN.
[2019-09-22] MEDS ORDERED: POTASSIUM EFFERVESENT TAB 25 MEQ PO ONE (08:00)
[2019-09-22] MEDS ORDERED: LISINOPRIL 20 MG TAB PO SCH (10:00)
[2019-09-22] MEDS ORDERED: PANTOPRAZOLE 40 MG TAB PO SCH (10:00)
[2019-09-22] MEDS: ASPirin 81 mg TAB PO SCH ×2 (10:20→10:45)
[2019-09-22] MEDS: METOPROLOL TARTRATE 25 MG TAB PO SCH ×2 (10:21→22:00)
[2019-09-22] MEDS: LEVETIRACETAM 500 MG TAB PO SCH ×2 (10:21→22:16)
[2019-09-22] MEDS ORDERED: diphenhdrAMINE HCL 50 MG/1 ML VL IV ONE (10:30)
--- NOTE | 2019-09-22 10:30 | NUR ---
Called patient's family Per patient request called son with phone number provided. Left message, awaiting call back.
[2019-09-22] MEDS: methylPREDNISolone SOD SUCC 40 MG/ML VL IV SCH ×3 (10:45→22:16)
--- NOTE | 2019-09-22 10:55 | NUR ---
Patient off unit Taken down via gurney for CT, no signs/symptoms of distress noted upon departure.
[2019-09-22] MEDS ORDERED: amLODIPine BESYLATE 5 MG TAB PO ONE (11:00)
[2019-09-22] MEDS: CALCIUM CARB 500 MG CHEW TAB PO SCH ×2 (12:00→18:00)
[2019-09-22] MEDS ORDERED: EPINEPHrine HCL 0.5 ML NEB NEB ONE (12:00)
[2019-09-22 12:20] LABS: Magnesium 1.8 mg/dL (1.6-2.6); Phosphorus 4.8 mg/dL (2.5-4.90)
[2019-09-22] MEDS ORDERED: CALCIUM CARB 500 MG CHEW TAB PO ONE (13:00)
[2019-09-22] MEDS ORDERED: ETOMIDATE (2MG/ML) 20ML VIAL IV ONE ×2 (13:18→15:00)
[2019-09-22] MEDS ORDERED: SUCCINYLCHOLINE CHLORIDE 20 MG/ML 10ML VIAL IV ONE ×2 (13:19→15:00)
[2019-09-22] MEDS ORDERED: ROCURONIUM 10MG/ML 10ML VIAL IV ONE (13:19)
--- NOTE | 2019-09-22 13:40 | NUR ---
IV INSERTED IV access obtained, via clean sterile technique by inserting 20 gauge catheter at the right forarm after 1 attempt. IV secured properly. No trauma to site. Patient tolerated well.
--- NOTE | 2019-09-22 13:40 | NUR ---
RECEIVED PATIENT Patient received from Thelma Velazquez RN. Patient had tele monitor attached and RNs present. Patient transferred to ICU bed, care initiated and initial assessment competed.
--- NOTE | 2019-09-22 13:40 | NUR ---
Telemetry transfer to ICU MILLI RICCI transfered to ICU room 107 via gurney on editor greeting card and portable 02 4L/min oxymizer. All patient personal belongings transferred with patient to receiving floor. Patient care transferred to Roseline.
[2019-09-22] MEDS: PROPOFOL 100 ML IV SCH ×2 (14:00→17:39)
[2019-09-22] MEDS: MIDAZOLAM DRIP 50 mg/50mL 50 ML IV SCH ×3 (14:00→21:07)
[2019-09-22] MEDS ORDERED: PROPOFOL 100 ML IV ONE ×2 (14:01→17:04)
--- NOTE | 2019-09-22 14:08 | NUR ---
INTUBATED Order received for intubation. Respiratory Therapist NAZIA at bedside. Patient instructed on need for intubation and possible sedation while on ventilator. Patient intubated by with 8 ETT, 24 at the lip. Charge Nurse Petros present. Premedicated with 20 of etomidate and 100 of suc. Preoxygenated. Patient tolerated well.
--- NOTE | 2019-09-22 14:22 | NUR ---
RADIOLOGIST CALLED Radiologist called to report "portal venous gas," on ABD CT examination. Report will be available shortly.
--- NOTE | 2019-09-22 14:24 | NUR ---
RUCKER INSERTION Patient assessed and determined to be in need of rucker catheter. Order obtained from . Rucker catheter 16 guage Frisian inserted with clean sterile technique. Patient tolerated well.
[2019-09-22] MEDS ORDERED: VANCOMYCIN PER PHARMACY 0 MG IV SCH (15:15)
[2019-09-22] MEDS ORDERED: PIPERACILLIN-TAZO 4.5GM 100 ML IV ONE (15:15)
--- NOTE | 2019-09-22 15:15 | NUR ---
CENTRAL LINE INSERTED Sterile technique upheld, patient tolerated well, obtaining XRAY.
--- NOTE | 2019-09-22 16:15 | NUR ---
LEFT NARE NGT NGT inserted per Dr. Jay order. Placement verified auscultation.
[2019-09-22] MEDS: SODIUM CHLORIDE 0.9% 1,000 ML IV SCH (17:01)
--- NOTE | 2019-09-22 17:54 | NUR ---
CENTRAL LINE DRESSING CHANGED Central line dressing change done with a sterile technique. Cleansed with chloraprep scrub/betadine. Stat lock, and bio-patch as available. Occlusive dressing applied.
[2019-09-22] MEDS ORDERED: VANCOMYCIN 1GM/250ML 250 ML IV ONE (19:00)
[2019-09-23] VITALS (102 sets, daily range): BP systolic 80–148; BP diastolic 49–98
[2019-09-23] MEDS: MIDAZOLAM DRIP 50 mg/50mL 50 ML IV SCH ×4 (01:57→21:00)
[2019-09-23] MEDS: ACCU-CHEK COMFORT CURVE STRIP VI SCH ×6 (04:17→20:29)
[2019-09-23] MEDS: InsuLIN REG 1unit/0.01ml Soln (100units/ml) SC SCH ×6 (04:17→20:00)
[2019-09-23 04:20] LABS: Basophils # (auto) 0 uL; Basophils % (auto) 0.4 % (0.0-2.0); Eosinophils # (auto) 0 uL; Hematocrit 32.8 % (41.0-53.0); Hemoglobin 11.2 g/dL (13.5-17.5); Lymphocytes % (auto) 11.5 % (10.0-50.0); Mean Corpuscular Hemoglobin 30.6 pg (28.0-32.0); Mean Corpuscular Hgb Conc. 34.3 g/dL (32.0-36.0); Mean Corpuscular Volume 89.2 fL (80.0-100.0); Monocytes # (auto) 0.2 uL; Monocytes % (auto) 2.8 % (0.0-12.0); Neutrophils # (auto) 7.2 uL; Neutrophils % (auto) 85.3 % (37.0-80.0); Platelet Count (auto) 172 10^3/uL (140-450); Red Blood Cells 3.67 10^6/uL (4.5-5.90); Red Cell Distribution Width 14.3 % (11.8-14.3); White Blood Cell 8.4 10^3/uL (4.4-10.8)
[2019-09-23 04:39] LABS: Albumin 2.9 g/dL (3.4-5.0); BUN/Creatinine Ratio 12.7; Potassium 3.3 mmol/L (3.5-5.1)
[2019-09-23 04:42] LABS: Bilirubin, Total 0.4 mg/dL (0.2-1.0); Total Protein 6.6 g/dL (6.4-8.2)
[2019-09-23 04:54] LABS: Calcium 5.5 mg/dL (8.5-10.1)
[2019-09-23] MEDS ORDERED: POTASSIUM CHL 20MEQ/100ML 100 ML IV ONE (05:30)
[2019-09-23] MEDS ORDERED: CALCIUM GLUC 4.65meq/50ml D5AE 50 ML IV ONE ×2 (05:30→10:45)
[2019-09-23] MEDS: INSULIN NPH Isophane (HUMAN) 1unit/0.01ml Susp(100units/ml) SC SCH ×4 (05:31→22:00)
[2019-09-23] MEDS: methylPREDNISolone SOD SUCC 40 MG/ML VL IV SCH ×3 (05:31→22:00)
[2019-09-23] MEDS: LEVOTHYROXINE SODIUM 100 MCG TAB PO SCH (06:31)
[2019-09-23] MEDS: PIPERACILLIN-TAZO 4.5GM 100 ML IV SCH ×3 (07:58→16:13)
[2019-09-23] MEDS: SODIUM CHLORIDE 0.9% 1,000 ML IV SCH (07:59)
[2019-09-23] MEDS: CALCIUM CARB 500 MG CHEW TAB PO SCH ×3 (08:00→17:55)
[2019-09-23] MEDS: PROPOFOL 100 ML IV SCH ×2 (08:16→16:43)
--- NOTE | 2019-09-23 08:46 | NUR ---
PATIENT HAS ORDER FOR CT W/CONTRAST OF ABD/PELVIS. CREATINE TRENDING UP AT THIS TIME. RADIOLOGY CALLED AND STATED THAT CONTRAST CAN NOT BE GIVEN DUE TI INCREASING CONTRAST. WILL INFORM MD ROUSE.
[2019-09-23] MEDS ORDERED: amLODIPine BESYLATE 5 MG TAB PO SCH (10:00)
[2019-09-23] MEDS: ASPirin 81 mg TAB PO SCH (10:00)
[2019-09-23] MEDS ORDERED: LEVOTHYROXINE SODIUM 100 MCG/5 ML INJ IV ONE (11:00)
[2019-09-23] MEDS ORDERED: VANCOMYCIN 1GM/250ML 250 ML IV ONE (11:00)
[2019-09-23] MEDS ORDERED: OMNIPAQUE ORAL SOLN 500ml 12mg/ml PO ONE (11:14)
[2019-09-23] MEDS ORDERED: CALCITRIOL 1 MCG/ML AMPULE IV ONE (11:15)
--- NOTE | 2019-09-23 11:35 | NUR ---
500 ML OR ORAL CONTRAST GIVEN VIA NGT. PER DR. POE ORDERS.
--- NOTE | 2019-09-23 12:22 | NUR ---
MD Dr. Coe at bedside updated on patient condition with no new orders. MD will check results of CT abdomen later.
[2019-09-23] MEDS: NOREPINEPHRINE BITARTRATE 32 MG in D5W 5% 218 ML IV SCH (12:52)
--- NOTE | 2019-09-23 13:25 | NUR ---
DR. RAMSEY HERE TO SEE PATIENT. SEE MD NOTES AND EMR FOR ANY NEW ORDERS.
--- NOTE | 2019-09-23 14:34 | NUR ---
PATIENT TAKEN TO CT SCAN AT THIS TIME.
--- NOTE | 2019-09-23 14:50 | NUR ---
RT Transport Note: Patient transported to Radiology for CT scan. Placed on nuclear monitoring technician and transport vent with alarms set and audible, vent connected to O2 tank, ambu-bag and mask available on bed. Patient returned to room with no adverse reaction noted. Transport completed without incident.
--- NOTE | 2019-09-23 15:30 | NUR ---
WOUND CARE NOTE: PATIENT NOTED TO BE INTUBATED, SEDATED. ADDED PATIENT TO SKIN INTEGRITY MONITORING. PATIENT ADMITTED TO [facility] WITH DIAGNOSIS OF ALLERGIC REACTION (ANGIOEDEMA), DM, THYROID DISORDER. ORDERED SPECIALTY AIR BED PER NURSE REQUEST AT THIS TIME. PATIENT TO BE PLACED, PENDING DELIVERY BY ISHA WIGGINS. SKIN/WOUND CARE PLAN IMPLEMENTED. DIETARY CONSULT ORDERED AT THIS TIME FOR LOW SARWAT/INTUBATION. PATIENT SHOULD BE TURNED Q 2 HOURS, PRN CONDITION PERMITS, WITH PRESSURE REDISTRIBUTION USING PILLOWS/WEDGES, BID/PRN APPLICATION WITH MOISTURE BARRIER CREAM, OPTIFOAM GENTLE SACRAL DRESSING. WOUND CARE TEAM WILL CONTINUE TO MONITOR.
--- NOTE | 2019-09-23 16:13 | NUR ---
LEAK TEST DONE AT THIS TIME: 42 ML. CUFF REINFLATED, NO ADVERSE REACTIONS NOTED. WILL ENDORSE PT CARE TO NOC SHIFT RT.
--- NOTE | 2019-09-23 18:07 | NUR ---
KELLE KINSEY HERE TO SEE PATIENT. SEE NOTES AND EMR FOR ANY NEW ORDERS.
--- NOTE | 2019-09-23 21:30 | NUR ---
6 ATTEMPTS AT A NEW PERIPHERAL IV. UNSUCCESSFUL. CALL IN TO HOSPITALIST.
--- NOTE | 2019-09-23 21:32 | NUR ---
DISREGARD PREVIOUS NOTE, MISTAKEN ENTRY
[2019-09-23] MEDS ORDERED: SACUBITRIL-VALSARTAN 24mg/26mg TAB PO SCH (22:00)
[2019-09-23] MEDS: CARVEDILOL 3.125 MG TAB PO SCH (22:00)
[2019-09-23] MEDS: LEVETIRACETAM INJ 1,000 MG in D5W 5% 100 ML IV SCH (22:00)
--- NOTE | 2019-09-23 22:15 | NUR ---
CALL TO DR DIKC CONCERNING THE ATRIAL FLUTTER RATE OF [phone]. ORDER TO WEAN DOWN THE CARDIZEM DRIP AND START ON NGT CARDIZEM ROUND THE CLOCK. ALSO AN ORDER FOR HYDRALAZINE PRN. OCCASIONALLY THE SBP HAS GONE ABOVE 150.
--- NOTE | 2019-09-23 22:40 | NUR ---
DISREGARD PREVIOUS NOTE, MISTAKEN ENTRY.
[2019-09-23] MEDS ORDERED: LEVETIRACETAM 500 MG/5ML INJ IV ONE (23:08)
[2019-09-24] VITALS (95 sets, daily range): BP systolic 91–134; BP diastolic 58–92
--- NOTE | 2019-09-24 | NUR ---
SB/NSR WITHOUT ECTOPY. REPOSITIONED. ORAL CARE. SWOLLEN FACE CONTINUES. RIJ TLC DRESSING CHANGED. DRESSING SATURATED WITH BLOOD. NEW BIOPATCH AND CLEAR DRESSING. NGT TO LIS. NO DRNG. NO SKIN ISSUES. PITTING EDEMA THROUGHOUT. SALAZAR DRAINING ADEQUATE AMOUNTS OF CLEAR YELLOW LIQUID.
[2019-09-24] MEDS: SODIUM CHLORIDE 0.9% 1,000 ML IV SCH (00:47)
[2019-09-24] MEDS: MIDAZOLAM DRIP 50 mg/50mL 50 ML IV SCH ×2 (02:17→14:13)
--- NOTE | 2019-09-24 03:00 | NUR ---
AM LABS DRAWN FROM THE CENTRAL LINE.
[2019-09-24 03:28] LABS: Basophils # (auto) 0 uL; Basophils % (auto) 0.3 % (0.0-2.0); Eosinophils # (auto) 0 uL; Hematocrit 33.2 % (41.0-53.0); Hemoglobin 11.4 g/dL (13.5-17.5); Lymphocytes # (auto) 0.8 uL; Lymphocytes % (auto) 8.1 % (10.0-50.0); Mean Corpuscular Hemoglobin 31.3 pg (28.0-32.0); Mean Corpuscular Hgb Conc. 34.3 g/dL (32.0-36.0); Mean Corpuscular Volume 91.2 fL (80.0-100.0); Monocytes # (auto) 0.4 uL; Monocytes % (auto) 4.2 % (0.0-12.0); Neutrophils # (auto) 8.7 uL; Neutrophils % (auto) 87.4 % (37.0-80.0); Platelet Count (auto) 174 10^3/uL (140-450); Red Blood Cells 3.64 10^6/uL (4.5-5.90); Red Cell Distribution Width 14.7 % (11.8-14.3); White Blood Cell 9.9 10^3/uL (4.4-10.8)
[2019-09-24 03:46] LABS: Potassium 3.6 mmol/L (3.5-5.1)
[2019-09-24 03:54] LABS: Albumin 2.6 g/dL (3.4-5.0); BUN/Creatinine Ratio 11.5; Bilirubin, Total 0.4 mg/dL (0.2-1.0); Total Protein 6.4 g/dL (6.4-8.2)
[2019-09-24 04:03] LABS: Calcium 5.4 mg/dL (8.5-10.1)
[2019-09-24] MEDS: ACCU-CHEK COMFORT CURVE STRIP VI SCH ×7 (04:25→23:42)
--- NOTE | 2019-09-24 04:25 | NUR ---
CHG BATH.PARTIAL LINEN CHANGE.
[2019-09-24] MEDS: InsuLIN REG 1unit/0.01ml Soln (100units/ml) SC SCH ×7 (04:26→23:42)
[2019-09-24] MEDS: methylPREDNISolone SOD SUCC 40 MG/ML VL IV SCH ×3 (06:00→21:35)
[2019-09-24] MEDS: INSULIN NPH Isophane (HUMAN) 1unit/0.01ml Susp(100units/ml) SC SCH ×4 (06:00→21:35)
[2019-09-24] MEDS: LEVOTHYROXINE SODIUM 100 MCG TAB PO SCH (06:38)
[2019-09-24] MEDS: PROPOFOL 100 ML IV SCH (06:50)
[2019-09-24] MEDS ORDERED: LEVOTHYROXINE SODIUM 100 MCG TAB PO SCH (07:00)
[2019-09-24] MEDS: CALCIUM CARB 500 MG CHEW TAB PO SCH ×3 (07:51→18:00)
[2019-09-24] MEDS: PIPERACILLIN-TAZO 4.5GM 100 ML IV SCH ×4 (07:51→23:43)
[2019-09-24] MEDS: LEVETIRACETAM INJ 1,000 MG in D5W 5% 100 ML IV SCH ×2 (10:00→21:35)
[2019-09-24] MEDS: CARVEDILOL 3.125 MG TAB PO SCH ×2 (10:00→21:35)
[2019-09-24] MEDS: ASPirin 81 mg TAB PO SCH (10:00)
[2019-09-24] MEDS ORDERED: CALCITRIOL 0.25 MCG CAP PO SCH ×2 (10:00)
--- NOTE | 2019-09-24 10:10 | NUR ---
DR. ROUSE HERE TO SEE PATIENT. SEE NOTES AND EMR FOR ANY NEW ORDERS.
[2019-09-24] MEDS: PANTOPRAZOLE 40 MG/10 ML VIAL INJ IV SCH (10:40)
--- NOTE | 2019-09-24 10:40 | NUR ---
DR. MAGALLON HERE TO SEE PATIENT. SEE NOTES AND EMR FOR ANY NEW ORDERS.
[2019-09-24] MEDS: NOREPINEPHRINE BITARTRATE 32 MG in D5W 5% 218 ML IV SCH (10:41)
[2019-09-24] MEDS ORDERED: FUROSEMIDE 40 MG/4 ML VIAL IV ONE (10:45)
[2019-09-24] MEDS: D5W/SOD CHL 0.45% 1,000 ML IV SCH (10:54)
[2019-09-24] MEDS ORDERED: CALCITRIOL 1 MCG/ML AMPULE IV ONE ×2 (11:00→11:45)
--- NOTE | 2019-09-24 11:46 | NUR ---
NUTRITION CONSULT/ASSESSMENT NOTES Please refer to link notes of nutrition screen form filed under the intervention section of the plan of care for further details. Est. Needs: 1800 kcal to 2450 kcal (15-20 kcal/kgBW), 69 gms to 86 gms pro (0.8-1.0 gms/kgIBW: 86 kg). Will continue to monitor pertinent labs and reassess nutrient need prn Thank you for this consult. Addendum: 09/24/19 at [address] Amended: Links added.
--- NOTE | 2019-09-24 13:30 | NUR ---
DR. ANTUNEZ HERE TO SEE PATIENT. SEE NOTES AND EMR FOR ANY NEW ORDERS.
--- NOTE | 2019-09-24 14:52 | NUR ---
assessment Patient is a 49 year old male who is on a vent. I have tried to call patients mehul Rahman for my assessment with no answer. I left a message for him to return my call. Addendum: 09/24/19 at 1453 by Crissy NUR Amended: Links added.
--- NOTE | 2019-09-24 19:30 | NUR ---
OPENING SHIFT RECEIVED REPORT FROM DAY SHIFT RN. ASSUMED CARE OF PATIENT. PATIENT IN BED INTUBATE AND SEDATED - PROPOFOL: 8MCG/KG/MIN, VERSED: 5MG/HR. RIGHT INTERNAL JUGULAR TLC, LEFT WRIST AND RIGHT FOREARM IV - CLEAN/DRY/INTACT. SALAZAR HUNG TO GRAVITY. REPOSITIONED FOR COMFORT. BED IN LOWEST POSITION, SIDE RAILS UP X2. WILL CONTINUE TO MONITOR.
[2019-09-25] VITALS (66 sets, daily range): BP systolic 85–142; BP diastolic 50–93
--- NOTE | 2019-09-25 00:34 | NUR ---
MORNING CARE / MATTRESS TRANSFER PERFORMED MORNING CARE WITH CHG WIPES AND WASH CLOTHS TO THE FACE. FULL LINEN CHANGE AND GOWN CHANGED. ORAL AND SALAZAR CARE PERFORMED. SKIN REASSESSED AT THIS TIME. PATIENT TRANSFERRED TO SPECIALTY MATTRESS. REPOSITIONED FOR COMFORT. BED IN LOWEST POSITION, SIDE RAILS UP X2. WILL CONTINUE TO MONITOR.
[2019-09-25] MEDS: MIDAZOLAM DRIP 50 mg/50mL 50 ML IV SCH (02:17)
[2019-09-25] MEDS: ACCU-CHEK COMFORT CURVE STRIP VI SCH ×4 (03:48→18:00)
[2019-09-25] MEDS: InsuLIN REG 1unit/0.01ml Soln (100units/ml) SC SCH ×4 (03:48→18:30)
--- NOTE | 2019-09-25 03:54 | NUR ---
ET TUBE RETRACTION RT RETRACTED ET TUBE FROM 29 TO 27 AT THE LIP. WILL CONTINUE TO MONITOR.
[2019-09-25 04:17] LABS: Basophils # (auto) 0 uL; Basophils % (auto) 0.1 % (0.0-2.0); Eosinophils # (auto) 0 uL; Hematocrit 32.7 % (41.0-53.0); Hemoglobin 11.3 g/dL (13.5-17.5); Lymphocytes # (auto) 0.6 uL; Lymphocytes % (auto) 7.3 % (10.0-50.0); Mean Corpuscular Hgb Conc. 34.4 g/dL (32.0-36.0); Mean Corpuscular Volume 90.2 fL (80.0-100.0); Monocytes # (auto) 0.4 uL; Monocytes % (auto) 4.6 % (0.0-12.0); Neutrophils # (auto) 7.3 uL; Platelet Count (auto) 182 10^3/uL (140-450); Red Blood Cells 3.63 10^6/uL (4.5-5.90); Red Cell Distribution Width 14.7 % (11.8-14.3); White Blood Cell 8.3 10^3/uL (4.4-10.8)
[2019-09-25 04:29] LABS: Potassium 3.4 mmol/L (3.5-5.1)
[2019-09-25 04:31] LABS: BUN/Creatinine Ratio 11.3
[2019-09-25 05:09] LABS: Calcium 5.5 mg/dL (8.5-10.1)
--- NOTE | 2019-09-25 05:35 | NUR ---
PAGED HOSPITALIST AWAITING CALL BACK.
--- NOTE | 2019-09-25 05:51 | NUR ---
HOSPITALIST CALLED BACK SPOKE WITH DR. GARDINER, MADE AWARE OF CALCIUM - 5.5, RECEIVED ORDERS FOR 2G CALCIUM GLUCONATE IVPB. NOTED AND CARRIED OUT. WILL CONTINUE TO MONITOR.
[2019-09-25] MEDS ORDERED: CALCIUM GLUC 4.65meq/50ml D5AE 50 ML IV ONE ×3 (05:59→06:30)
[2019-09-25] MEDS: INSULIN NPH Isophane (HUMAN) 1unit/0.01ml Susp(100units/ml) SC SCH (06:01)
[2019-09-25] MEDS: methylPREDNISolone SOD SUCC 40 MG/ML VL IV SCH ×3 (06:01→22:34)
[2019-09-25] MEDS: LEVOTHYROXINE SODIUM 100 MCG TAB PO SCH (06:44)
--- NOTE | 2019-09-25 07:30 | NUR ---
END OF SHIFT REPORT GIVEN TO DAY SHIFT RN. CARE ENDORSED.
--- NOTE | 2019-09-25 09:00 | NUR ---
NO SEDATION VACATION AT PRESENT - PATIENT MOVING ALL EXTREMITIES PER SELF INTERMITTENTLY AND TO DEEP PAINFUL STIMULI. Addendum: 09/25/19 at 1831 by Tasha Gomez RN Amended: Links added.
--- NOTE | 2019-09-25 09:05 | NUR ---
PATIENT'S STS (SKILLS ELECTROPHYSIOLOGY TECHNICIAN) FROM [facility]ER. ANG JACQUI ROMO PHONED WITH NEXT OF KIN INFO - CONTACT NUMBER TAKE FOR PATIENT'S MOTHER - GIVEN UPDATE ON PATIENT CONDITION FROM YESTERDAY.
--- NOTE | 2019-09-25 09:30 | NUR ---
Respiratory note: LEAK TEST DONE. LEAK CALCULATED AT 111 ML. RN SIVA OLIVEIRA AND DR. VEE. WILL CONTINUE TO MONITOR PT.
[2019-09-25] MEDS: PIPERACILLIN-TAZO 4.5GM 100 ML IV SCH ×2 (09:36→16:35)
[2019-09-25] MEDS: CARVEDILOL 3.125 MG TAB PO SCH ×2 (10:00→22:00)
--- NOTE | 2019-09-25 10:00 | NUR ---
DR ROUSE VISITS AND EXAMINES PATIENT - ORDERS RECEIVED.
[2019-09-25] MEDS ORDERED: Glucerna 1.2 Cal 1Liter BOTTLE GT SCH (10:15)
[2019-09-25] MEDS ORDERED: DEXTROSE (50%) 50ML SYRG IV PRN (10:15)
--- NOTE | 2019-09-25 10:40 | NUR ---
DR VEE VISITS AND EXMAINES PATIENT - ORDERS RECEIVED FOR CPAP AND TO WEAN SEDATION- NUTRIENT MANAGEMENT SPECIALIST TURNED OFF VERSED.
[2019-09-25] MEDS: NOREPINEPHRINE BITARTRATE 32 MG in D5W 5% 218 ML IV SCH (10:41)
[2019-09-25] MEDS: CALCIUM CARB 500 MG CHEW TAB PO SCH ×3 (10:51→18:39)
[2019-09-25] MEDS: LEVETIRACETAM INJ 1,000 MG in D5W 5% 100 ML IV SCH ×2 (10:51→22:33)
[2019-09-25] MEDS: PANTOPRAZOLE 40 MG/10 ML VIAL INJ IV SCH (10:52)
[2019-09-25] MEDS: ASPirin 81 mg TAB PO SCH (10:52)
[2019-09-25] MEDS: D5W/SOD CHL 0.45% 1,000 ML IV SCH (10:55)
[2019-09-25] MEDS: PROPOFOL 100 ML IV SCH (12:44)
--- NOTE | 2019-09-25 14:00 | NUR ---
GLUCERNA TF STARTED AT 30ML/HR PER ORDERS.
[2019-09-25] MEDS: POTASSIUM CHL 20MEQ/100ML 100 ML IV SCH ×2 (14:39→18:39)
--- NOTE | 2019-09-25 16:27 | NUR ---
Respiratory note: PATIENT SWITCHED OVER TO HEATED CIRCUIT WITHOUT ANY INCIDENT. PATIENT REMAINS ON SETTINGS AC 16/600/+10/45%. MINA CHANGED WELL DUE TO BEING SOILED. LELE PANIAGUA IS AWARE.
[2019-09-25 16:55] LABS: INR 1.18 (0.9-1.15); Partial Thromboplastin Time 30.5 sec (23.64-32.05)
--- NOTE | 2019-09-25 17:20 | NUR ---
PATIENT'S CAREGIVERS MARCIO AND VISIT PATIENT - STATE THEY CAN NO LONGER CARE FOR PATIENT AFTER DISCHARGE DUE TO THEIR OWN HEALTH PROBLEMS AND PATIENT'S NON-COMPLIANCE - INFORM WRTER THAT THEY WILL BNE CONTACTIGN PATIENT'S ORAL SURGERY PHYSICIAN TO INFORM HER OF THE SAME. CONSULT PLACED TO SOCIAL SERVICE.
--- NOTE | 2019-09-25 18:15 | NUR ---
60ML TF RESIDUAL - TF HELD AT PRESENT.
--- NOTE | 2019-09-25 19:30 | NUR ---
REPORT RECEIVED AND ASSUMED CARE; SEE INTEREVNTIONS FOR ASSESSMENT; VS STABLE AT THIS TIME; SEE IV SPREADSHEET FOR GTTS; WILL CONT. TO MONITOR.
--- NOTE | 2019-09-25 20:00 | NUR ---
PT. HAS 60ML RESIDUAL WITH SMALL AMOUNT OF BLOOD; WILL CONT. TO MONITOR.
--- NOTE | 2019-09-25 20:25 | NUR ---
OBTAINED CONSENT FOR BRONCHOSCOPY FROM PATIENT'S MOTHER ANUPAM RICCI - PLACED IN CHART
[2019-09-26] VITALS (85 sets, daily range): BP systolic 114–165; BP diastolic 74–92
[2019-09-26] MEDS: PIPERACILLIN-TAZO 4.5GM 100 ML IV SCH ×3 (00:14→15:44)
[2019-09-26] MEDS: ACCU-CHEK COMFORT CURVE STRIP VI SCH ×4 (00:14→18:38)
[2019-09-26] MEDS: InsuLIN REG 1unit/0.01ml Soln (100units/ml) SC SCH ×4 (00:15→18:38)
--- NOTE | 2019-09-26 05:19 | NUR ---
PROVIDED COMPLETE BED BATH AND LINEN CHANGE; PT. TOLERATED WELL AND WILL CONT. TO MONITOR.
[2019-09-26 05:36] LABS: Basophils # (auto) 0 uL; Basophils % (auto) 0.2 % (0.0-2.0); Eosinophils # (auto) 0 uL; Hematocrit 35.7 % (41.0-53.0); Hemoglobin 12.1 g/dL (13.5-17.5); Lymphocytes # (auto) 0.7 uL; Lymphocytes % (auto) 8.9 % (10.0-50.0); Mean Corpuscular Hemoglobin 30.9 pg (28.0-32.0); Mean Corpuscular Volume 90.8 fL (80.0-100.0); Monocytes # (auto) 0.4 uL; Monocytes % (auto) 5.1 % (0.0-12.0); Neutrophils # (auto) 6.9 uL; Neutrophils % (auto) 85.8 % (37.0-80.0); Nucleated Red Blood Cells % 0.1 %; Platelet Count (auto) 176 10^3/uL (140-450); Red Blood Cells 3.93 10^6/uL (4.5-5.90); Red Cell Distribution Width 14.7 % (11.8-14.3)
[2019-09-26 05:55] LABS: BUN/Creatinine Ratio 11.8; Calcium 6.1 mg/dL (8.5-10.1); Potassium 3.6 mmol/L (3.5-5.1)
[2019-09-26] MEDS: methylPREDNISolone SOD SUCC 40 MG/ML VL IV SCH ×3 (06:00→22:21)
[2019-09-26] MEDS: LEVOTHYROXINE SODIUM 100 MCG TAB PO SCH (06:45)
--- NOTE | 2019-09-26 07:45 | NUR ---
OPENING Report received from Mariana KAUR RN. Care initiated and initial assessment complete.
[2019-09-26] MEDS ORDERED: SODIUM CHLORIDE LOCK 10 ML ONE (08:33)
[2019-09-26] MEDS ORDERED: EPINEPHrine HCL 1 MG/1 ML AMP ONE (08:33)
[2019-09-26] MEDS ORDERED: LIDOCAINE 2%HCL (LOCAL ANESTH.) INJ 20ML MDV ONE (08:33)
[2019-09-26] MEDS ORDERED: MIDAZOLAM HCL 5 MG/ML-1ML VIAL ONE (08:34)
[2019-09-26] MEDS ORDERED: fentaNYL CITRATE 100 MCG/2 ML VL ONE (08:34)
[2019-09-26] MEDS ORDERED: LIDOCAINE HCL 2% TOP JELLY 5ML TOP ONE (08:34)
[2019-09-26] MEDS: CALCIUM CARB 500 MG CHEW TAB PO SCH ×3 (08:47→18:37)
[2019-09-26] MEDS: ASPirin 81 mg TAB PO SCH (09:11)
[2019-09-26] MEDS: CARVEDILOL 3.125 MG TAB PO SCH ×2 (09:11→22:00)
[2019-09-26] MEDS: PANTOPRAZOLE 40 MG/10 ML VIAL INJ IV SCH (09:11)
[2019-09-26] MEDS: NOREPINEPHRINE BITARTRATE 32 MG in D5W 5% 218 ML IV SCH (09:18)
[2019-09-26] MEDS: D5W/SOD CHL 0.45% 1,000 ML IV SCH (09:19)
--- NOTE | 2019-09-26 09:30 | NUR ---
BEDSIDE Dr. Mishra bedside. MD would like patient started on feedings post bronch today. Will relate to primary MD.
[2019-09-26] MEDS: CALCITRIOL 1 MCG/ML AMPULE IV SCH (10:00)
[2019-09-26] MEDS: LEVETIRACETAM INJ 1,000 MG in D5W 5% 100 ML IV SCH ×2 (10:05→22:48)
[2019-09-26] MEDS ORDERED: FUROSEMIDE 40 MG/4 ML VIAL IV ONE (10:45)
[2019-09-26] MEDS ORDERED: CALCIUM GLUC 4.65meq/50ml D5AE 50 ML IV ONE (11:00)
[2019-09-26] MEDS ORDERED: ACETYLCYSTEINE 10 %(100MG/ML) SOL 4ML NEB ONE (12:00)
--- NOTE | 2019-09-26 12:00 | NUR ---
OR SETTING UP AT BEDSIDE
--- NOTE | 2019-09-26 12:30 | NUR ---
RT NOTE: ETT RETRACTED BY DR. VEE DURING BRONCH TO 24CM AT THE UPPER LIP. PT. TOLERATING WELL. LELE OLIVEIRA.
--- NOTE | 2019-09-26 14:09 | NUR ---
RT NOTE: LEAK TEST DONE, LEAK OF 380ML CALCULATED. AWARE.
--- NOTE | 2019-09-26 16:22 | NUR ---
assessment Patient is a 49 year old male who is on a vent. Per patients mother Yamile prior to admission patient lived home with friends and was independent. Per Yamile patient had no need for DME. I informed Yamile of consult of caregivers no longer able to care for patient. Per Yamile patient did not have a caregiver. Per Yamile patient was independent. I informed Yamile patients post discharge needs to be determined after extubation and prior to discharge. Yamile verbalized understanding. Addendum: 09/26/19 at 1625 by Crissy NUR Amended: Links added.
[2019-09-26] MEDS: PROPOFOL 100 ML IV SCH (16:42)
[2019-09-26] MEDS: MIDAZOLAM DRIP 50 mg/50mL 50 ML IV SCH (16:42)
--- NOTE | 2019-09-26 18:45 | NUR ---
BEDSIDE Dr. George bedside.
--- NOTE | 2019-09-26 19:30 | NUR ---
report received and assumed care; see interventions for assessment; see iv spreadsheet for gtts; vs stable at this time; will cont. to monitor.
[2019-09-27] VITALS (99 sets, daily range): BP systolic 109–172; BP diastolic 71–99
[2019-09-27] MEDS: PIPERACILLIN-TAZO 4.5GM 100 ML IV SCH ×2 (01:33→08:00)
[2019-09-27] MEDS: ACCU-CHEK COMFORT CURVE STRIP VI SCH ×4 (01:34→18:16)
[2019-09-27] MEDS: InsuLIN REG 1unit/0.01ml Soln (100units/ml) SC SCH ×4 (01:35→18:16)
--- NOTE | 2019-09-27 04:16 | NUR ---
pt. received a complete bed bath and linen change; pt. tolerated well; will cont. to monitor.
[2019-09-27 04:44] LABS: Potassium 3.2 mmol/L (3.5-5.1)
[2019-09-27 04:46] LABS: BUN/Creatinine Ratio 13.3; Calcium 6.2 mg/dL (8.5-10.1)
[2019-09-27] MEDS: LEVOTHYROXINE SODIUM 100 MCG TAB PO SCH (07:00)
[2019-09-27] MEDS: CALCIUM CARB 500 MG CHEW TAB PO SCH ×3 (08:00→18:00)
[2019-09-27] MEDS: CARVEDILOL 3.125 MG TAB PO SCH ×2 (09:35→22:00)
[2019-09-27] MEDS: ASPirin 81 mg TAB PO SCH (09:39)
[2019-09-27] MEDS: LEVETIRACETAM INJ 1,000 MG in D5W 5% 100 ML IV SCH ×2 (09:40→22:12)
[2019-09-27] MEDS: methylPREDNISolone SOD SUCC 40 MG/ML VL IV SCH ×2 (09:40→22:13)
[2019-09-27] MEDS: PANTOPRAZOLE 40 MG/10 ML VIAL INJ IV SCH (09:40)
--- NOTE | 2019-09-27 09:40 | NUR ---
MD Dr. Phillips at bedside updated on patient condition with new orders, MD to input into system. Will carry out orders per MD.
--- NOTE | 2019-09-27 10:15 | NUR ---
Respiratory note: LEAK TEST DONE PER ORDERS. PT HAS A LEAK OF 150.
[2019-09-27 10:20] LABS: Basophils # (auto) 0 uL; Basophils % (auto) 0.5 % (0.0-2.0); Eosinophils # (auto) 0 uL; Hemoglobin 13.2 g/dL (13.5-17.5); Lymphocytes % (auto) 11.8 % (10.0-50.0); Mean Corpuscular Hemoglobin 30.5 pg (28.0-32.0); Mean Corpuscular Hgb Conc. 33.8 g/dL (32.0-36.0); Mean Corpuscular Volume 90.1 fL (80.0-100.0); Monocytes # (auto) 0.6 uL; Monocytes % (auto) 7.5 % (0.0-12.0); Neutrophils # (auto) 6.6 uL; Neutrophils % (auto) 80.2 % (37.0-80.0); Nucleated Red Blood Cells % 0.2 %; Platelet Count (auto) 185 10^3/uL (140-450); Red Blood Cells 4.33 10^6/uL (4.5-5.90); Red Cell Distribution Width 14.6 % (11.8-14.3); White Blood Cell 8.2 10^3/uL (4.4-10.8)
[2019-09-27 10:26] LABS: Magnesium 2.1 mg/dL (1.6-2.6)
[2019-09-27 10:29] LABS: Phosphorus 7.6 mg/dL (2.5-4.90)
[2019-09-27] MEDS: D5W/SOD CHL 0.45% 1,000 ML IV SCH (10:30)
[2019-09-27] MEDS: NOREPINEPHRINE BITARTRATE 32 MG in D5W 5% 218 ML IV SCH (10:41)
[2019-09-27] MEDS: DOXYCYCLINE 100MG/250ML 250 ML IV SCH ×2 (10:53→21:45)
[2019-09-27] MEDS: POTASSIUM CHL 20MEQ/100ML 100 ML IV SCH ×2 (10:53→12:26)
--- NOTE | 2019-09-27 12:10 | NUR ---
MD Dr. Jacobs at bedside updated on patient condition with no new orders other than CPAP trial once patient fully awake and following commands.
--- NOTE | 2019-09-27 12:27 | NUR ---
Nutrition Follow-up Notes Wt.: 119.6 kg today. Pt's intubated, sedated , no immediate family member at bedside during rounds this morning. Pt's s/p Bronchoscopy (09/26/19), remains NPO, no order for alternate nutrition support yet at this time, noted for possible CPAP trial. Est. Needs: 1800 kcal to 2450 kcal (15-20 kcal/kgBW), 69 gms to 86 gms pro (0.8-1.0 gms/kgIBW: 86 kg). Will continue to monitor pertinent labs and reassess nutrient need prn Labs: Gluc 201 H, K 3.2 L, BUN 43 H, Cr 3.24 H, Ca 6.2 L; HbA1c 7.6 H, Alb 2.6 L Skin: Ned scale 13, mod risk, skin intact per chemical engineering teacher. GI: Pt's no bowel activity since 09/21/19 per chemical engineering teacher. PES: Increased nutrient needs r/t acute/chronic medical condition aeb intubated, sedated, mod hypoalbuminemia, NPO. Altered nutrition related lab values r/t current/chronic medical condition aeb hyperglycemia, elev. renal labs,HbA1c, LFTs,hypocalcemia and mod hypoalbuminemia Obesity r/t food intake more than body requirement aeb 140% IBW, BMI 34.2 kg/m2 and increased body adiposity Will continue to monitor NPO status, skin status, pertinent labs and weight trend. F/u in 2 to 3 days. Rec.: 1.) Advance gradually to oral diet when medically appropriate. 2.) If still NPO, consider alternate/EN support with formula choice of Glucerna 1.2 Delvis @ 75 ml/hr goal rate as tolerated when medically appropriate. 3.) If Albumin continues trending down with improved renal labs, consider Prostat 1 pkt BID. 4.) Refer pt to CDE/RD for further nutrition education and weight monitoring upon discharge. 5.) Continue current plan of care.
--- NOTE | 2019-09-27 12:33 | NUR ---
CPAP TRIAL RT Yessania at bedside and change ventilator settings to CPAP mode.
--- NOTE | 2019-09-27 12:33 | NUR ---
Respiratory note: PT WAS PLACED ON CPAP TRIAL PER ORDERS. NO SOB OR DISTRESS NOTED.
--- NOTE | 2019-09-27 13:33 | NUR ---
CPAP TRIAL Patient placed back on AC mode secondary to patient Respiratory rate decreased down between 5-9, periods of apnea and patients NIF -3.1. Will notify
--- NOTE | 2019-09-27 13:33 | NUR ---
Respiratory note: PT UNABLE TO GET ADEQUATE NIF - 3.1, HAD EPISODES OF APNEA, AND RATE OF 5-9. PT WAS PLACED BACK ON A/C PREVIOUS SETTINGS. RN AWARE AND WILL NOTIFY .
[2019-09-27] MEDS: MIDAZOLAM DRIP 50 mg/50mL 50 ML IV SCH (16:02)
[2019-09-27] MEDS: PROPOFOL 100 ML IV SCH (16:02)
[2019-09-27] MEDS: DexMEDEtomidine 400 MCG in D5W 5% 96 ML IV SCH (22:00)
[2019-09-28] VITALS (78 sets, daily range): BP systolic 116–146; BP diastolic 75–91
[2019-09-28] MEDS: ACCU-CHEK COMFORT CURVE STRIP VI SCH ×4 (06:55→17:52)
[2019-09-28] MEDS: InsuLIN REG 1unit/0.01ml Soln (100units/ml) SC SCH ×4 (06:55→17:55)
[2019-09-28] MEDS: LEVOTHYROXINE SODIUM 100 MCG TAB PO SCH (06:55)
--- NOTE | 2019-09-28 07:30 | NUR ---
ASSESS- PT. LYING ON [facility] AIR BED ON VENT SIZE # 8.0 ET, 24 AT THE LIP, AC-12, TV-600, PEEP-8, FIO2-30%. LUNGS CLEAR EULOGIO. INSPIRATORY AND EXPIRATORY, DIMINISHED BASES EULOGIO. PT. HAS GAG/COUGH REFLEX. PUPILS 3 AND BRISK EULOGIO. OPENS EYES TO VERBAL COMMANDS, ALERT, APPROPRIATE. ON PRECEDEX GTT. AT 0.2 MCG./KG./MIN. EULOGIO. HAND MITTENS IN PLACE TO PREVENT PULLING ON TUBES. ABD. SOFT, LG. BOWEL SOUNDS ALL FOUR QUADRANTS. NGT LT. NARE CLAMPED. PT. IS NPO. F/C TO GRAVITY WITH LT. THERESE CLOUDY URINE WITH SEDIMENT. TLC RT. IJ INTACT. SKIN INTACT. RADIAL PULSES STRONG, PALPABLE EULOGIO. DORSALIS PEDAL PULSES STRONG, PALPABLE EULOGIO. 1 PLUS NON-PITTING EDEMA LE EULOGIO. SCD'S EULOGIO. LE. FACE SLIGHTLY SWOLLEN. RECTAL PROBE IN PLACE. Addendum: 09/28/19 at 1054 by Dede Sood RN PRECEDEX GTT. AT 0.2 MCG./KG./HR. NOT MIN.
[2019-09-28] MEDS: CALCIUM CARB 500 MG CHEW TAB PO SCH ×3 (08:00→17:42)
--- NOTE | 2019-09-28 09:35 | NUR ---
DAILY LEAK TEST DONE. CALCULATED LEAK OF 160 ML. CUFF REINFLATED WITHOUT INCIDENT. WILL NOTIFY MD DURING ROUNDS.
[2019-09-28] MEDS: ASPirin 81 mg TAB PO SCH (09:37)
[2019-09-28] MEDS: methylPREDNISolone SOD SUCC 40 MG/ML VL IV SCH ×2 (09:37→23:03)
[2019-09-28] MEDS: LEVETIRACETAM INJ 1,000 MG in D5W 5% 100 ML IV SCH ×2 (09:37→22:00)
[2019-09-28] MEDS: PANTOPRAZOLE 40 MG/10 ML VIAL INJ IV SCH (09:37)
[2019-09-28] MEDS: CALCITRIOL 1 MCG/ML AMPULE IV SCH (09:38)
[2019-09-28] MEDS: DOXYCYCLINE 100MG/250ML 250 ML IV SCH ×2 (09:38→23:01)
[2019-09-28] MEDS: CARVEDILOL 3.125 MG TAB PO SCH ×2 (10:00→22:00)
[2019-09-28] MEDS: D5W/SOD CHL 0.45% 1,000 ML IV SCH (10:30)
[2019-09-28] MEDS: NOREPINEPHRINE BITARTRATE 32 MG in D5W 5% 218 ML IV SCH (10:41)
[2019-09-28] MEDS: DexMEDEtomidine 400 MCG in D5W 5% 96 ML IV SCH (10:51)
--- NOTE | 2019-09-28 11:00 | NUR ---
PT. AWAKE, ALERT AND APPROPRIATE. ABLE TO FOLLOW SIMPLE COMMANDS. ON PRECEDEX GTT. AT 0.2 MCG./KG./HR. VSS. RT PLACED PT. ON CPAP TRIAL PER MD ORDER.
--- NOTE | 2019-09-28 11:00 | NUR ---
CPAP TRIAL SWITCHED PT TO CPAP TRIAL PER DR VEE'S ORDERS. PT TOLERATING WELL, RESTING COMFORTABLY IN BED. AWAKE AND ALERT, FOLLOWS SIMPLE COMMANDS. WEANING PARAMETERS OBTAINED: NIF -11, VC 1.3L, RSBI 25, LEAK 160ML. NOTIFIED LELE DINERO OF CHANGES. WILL CONTINUE TO MONITOR.
--- NOTE | 2019-09-28 11:20 | NUR ---
DR. MARIA Provider/Hospitalist at bedside. GAVE UPDATE ON PT. NEW ORDERS RECEIVED.
[2019-09-28] MEDS: PROPOFOL 100 ML IV SCH (11:30)
[2019-09-28] MEDS: MIDAZOLAM DRIP 50 mg/50mL 50 ML IV SCH (11:30)
--- NOTE | 2019-09-28 11:30 | NUR ---
DR. PATEL Provider/Hospitalist at bedside. GAVE UPDATE ON PT. NEW ORDERS RECEIVED.
[2019-09-28] MEDS: POTASSIUM CHL 20MEQ/100ML 100 ML IV SCH ×3 (12:36→16:25)
[2019-09-28 13:17] LABS: BUN/Creatinine Ratio 14.3; Calcium 6.5 mg/dL (8.5-10.1); Potassium 3.4 mmol/L (3.5-5.1)
--- NOTE | 2019-09-28 15:00 | NUR ---
PT. REMAINS ON CPAP. TOLERATING WELL. RR TEENS. O2 SATS 95%-97%. NO SIGNS OF RESP. DISTRESS.
[2019-09-28] MEDS ORDERED: LEVOTHYROXINE SODIUM 100 MCG/5 ML INJ IV ONE (15:45)
--- NOTE | 2019-09-28 15:51 | NUR ---
ENDED CPAP TRIAL REATTEMPTED WEANING PARAMETERS, PT STILL WITH WEAK NIF -15. PT GETTING TIRED ON CPAP. SWITCHED BACK TO AC MODE ON PREVIOUSLY ORDERED SETTINGS. PT TOLERATING CHANGES WELL. PT AWAKE AND RESTING COMFORTABLY IN BED. NOTIFIED LELE DINERO OF CHANGES. ALARMS SET AND AUDIBLE. WILL ENDORSE PT CARE TO NOC SHIFT RT.
--- NOTE | 2019-09-28 15:55 | NUR ---
CPAP TRIAL WAS STOPPED BY RT. PT. SWITCHED BACK TO AC MODE WITH PREVIOUS VENT SETTINGS. TOLERATED WELL. PT. DROWSY NOW.
--- NOTE | 2019-09-28 16:44 | NUR ---
DR. VEE Provider/Hospitalist at bedside. NEW ORDERS RECEIVED.
--- NOTE | 2019-09-28 19:30 | NUR ---
report received and assumed care; see interventions for assessment; vs stable at this time; see iv spreadsheet for gtts; will cont. to monitor.
[2019-09-28] MEDS: MUPIROCIN 2% OINT 15gm or 22gm EACHNOSTRI SCH (23:02)
[2019-09-29] VITALS (44 sets, daily range): BP systolic 125–169; BP diastolic 74–105
[2019-09-29] MEDS: ACCU-CHEK COMFORT CURVE STRIP VI SCH ×5 (06:45→23:51)
[2019-09-29] MEDS: InsuLIN REG 1unit/0.01ml Soln (100units/ml) SC SCH ×5 (07:46→23:51)
--- NOTE | 2019-09-29 09:12 | NUR ---
NEPHROLOGY AT BEDSIDE DR PATEL UPDATED ON PATIENT'S STATUS, PENDING LAB ORDERS AND URINE OUTPUT DURING WILDLIFE ENFORCEMENT MAJOR. DR PATEL ALSO AWARE OF CPAP IN PROCESS. NO ORDERS RECEIVED AT THIS TIME
--- NOTE | 2019-09-29 09:33 | NUR ---
SPECIAL SERVICES COORDINATOR AT BEDSIDE/FAMILY PATIENT'S CAREGIVER "DARELL" AT BEDSIDE. PATIENT CURRENTLY ON CPAP. PATIENT ABLE TO USE WRITING BOARD AND DID WRITE "ANUPAM" ON PAPER WHEN ASKED WHO THE VISITOR WAS. ANUPAM WAS UPDATED ON PATIENT'S STATUS, ANUPAM DID STATE THAT HIS IS CARING FOR PATIENT'S SON AT THIS TIME. ANUPAM VERBALIZED UNDERSTANDING.
[2019-09-29] MEDS: CARVEDILOL 3.125 MG TAB PO SCH ×2 (10:00→21:46)
[2019-09-29 10:11] LABS: Calcium 6.5 mg/dL (8.5-10.1); Potassium 3.5 mmol/L (3.5-5.1)
[2019-09-29 10:13] LABS: BUN/Creatinine Ratio 16.4
[2019-09-29] MEDS: methylPREDNISolone SOD SUCC 40 MG/ML VL IV SCH ×2 (10:13→21:46)
[2019-09-29] MEDS: DOXYCYCLINE 100MG/250ML 250 ML IV SCH ×2 (10:13→21:46)
[2019-09-29] MEDS: CALCIUM CARB 500 MG CHEW TAB PO SCH ×3 (10:13→18:00)
[2019-09-29] MEDS: PANTOPRAZOLE 40 MG/10 ML VIAL INJ IV SCH (10:13)
[2019-09-29] MEDS: MUPIROCIN 2% OINT 15gm or 22gm EACHNOSTRI SCH ×2 (10:14→21:52)
--- NOTE | 2019-09-29 10:15 | NUR ---
PULMONOLOGY AT BEDSIDE DR VEE UPDATED ON PATIENT'S STATUS AND MORNING ABG. ORDERS TO EXTUBATE RECEIVED AFTER MD ASSESSED PATIENT. R.T. NORMAL AT BEDSIDE AND AWARE.
[2019-09-29] MEDS: ASPirin 81 mg TAB PO SCH (10:18)
[2019-09-29] MEDS: LEVOTHYROXINE SODIUM 100 MCG/5 ML INJ IV SCH (10:19)
--- NOTE | 2019-09-29 10:24 | NUR ---
EXTUBATED PT AT APPROXIMATELY 1024 WITH NO INCIDENT REPORTED. PT PLACED ON 8L CA AT 30% FIO2. BS ARE CLEAR/ DIMINISHED, HR 91, RR 24 SPO2 92%. NO STRIDOR NOTED. LELE JONES AT BEDSIDE. WILL CONTINUE TO MONITOR PT.
[2019-09-29] MEDS: DexMEDEtomidine 400 MCG in D5W 5% 96 ML IV SCH (10:39)
--- NOTE | 2019-09-29 10:39 | NUR ---
CONTACT PHARMACY FOR KEPPRA WILL ADMINISTER SOON RECEIVED.
[2019-09-29] MEDS: NOREPINEPHRINE BITARTRATE 32 MG in D5W 5% 218 ML IV SCH (10:41)
--- NOTE | 2019-09-29 11:07 | NUR ---
HOSPITALIST AT BEDSIDE DR MARIA UPDATED ON PATIENT'S STATUS AND MORNING LABS. ORDERS RECEIVED WELL "OK TO DOWNGRADE TO TELE IF PATIENT STABLE AFTER 6 HOURS FROM EXTUBATION". ORDERS WILL BE CARRIED OUT. JYOTI CHARGE NURSE AWARE.
[2019-09-29] MEDS ORDERED: POTASSIUM CHL 20MEQ/100ML 100 ML IV ONE (11:15)
[2019-09-29] MEDS ORDERED: CALCIUM GLUC 4.65meq/50ml D5AE 50 ML IV ONE (11:15)
[2019-09-29] MEDS: MORPHINE SULFATE 4 MG/ML SYR/VIAL IV PRN ×2 (11:33→15:42)
--- NOTE | 2019-09-29 11:33 | NUR ---
Nutrition Follow-up Notes Wt.: 118.5 kg today. Pt's in isolation room, with RT and RN at bedside for CPAP trial earlier. Noted pt's just successfully extubated, remains NPO at this time, for swallow eval by ST. Est. Needs: 1800 kcal to 2450 kcal (15-20 kcal/kgBW), 69 gms to 86 gms pro (0.8-1.0 gms/kgIBW: 86 kg). Will continue to monitor pertinent labs and reassess nutrient need prn Labs: Gluc 235 H, K 3.4 L, BUN 38 H, Cr 2.65 H, Ca 6.5 L; TSH 50.60 H, HbA1c 7.6 H, Alb 2.6 L Skin: Ned scale 13, mod risk, skin intact per product picker. GI: Pt's no bowel activity since 09/21/19 per product picker. PES: Partially resolved: Increased nutrient needs r/t acute/chronic medical condition aeb intubated, sedated, mod hypoalbuminemia, NPO. Altered nutrition related lab values r/t current/chronic medical condition aeb hyperglycemia, elev. renal labs,HbA1c, LFTs,hypocalcemia and mod hypoalbuminemia Obesity r/t food intake more than body requirement aeb 140% IBW, BMI 34.2 kg/m2 and increased body adiposity Will continue to monitor NPO status, skin status, pertinent labs and weight trend. F/u in 2 to 3 days. Rec.: 1.) Advance gradually to oral diet (Consistent Standard Carb: 60 gms/meal, Cardiac: 2 gms Na, Low Chol, Low Fat diet-per ST's diet texture recommendation) when medically appropriate. 2.) If Albumin continues trending down with improved renal labs, consider Prostat 1 pkt BID. 3.) If still NPO, consider alternate/EN support with formula choice of Glucerna 1.2 Delvis @ 75 ml/hr goal rate as tolerated if medically appropriate. 4.) Refer pt to CDE/RD for further nutrition education and weight monitoring upon discharge. 5.) Continue current plan of care.
[2019-09-29] MEDS: LEVETIRACETAM INJ 1,000 MG in D5W 5% 100 ML IV SCH ×2 (13:00→22:20)
--- NOTE | 2019-09-29 14:25 | NUR ---
PAGED HOSPITALIST DR MARIA TO NOTIFY OF ELEVATED BLOOD PRESSURE AND PATIENT REQUESTING ORAL OXYCONTIN TID, AWAITING RESPONSE.
--- NOTE | 2019-09-29 14:40 | NUR ---
RETURN CALL FROM HOSPITALIST DR MARIA UPDATED ON PATIENT'S STATUS AND REQUEST FOR OXYCONTIN PAIN TABS TID. ORDERS RECEIVED FOR BP MEDICATION AND DOWNGRADE ORDER.
[2019-09-29] MEDS ORDERED: hydrALAZINE HCL 20 MG/ML VL IV PRN (15:15)
--- NOTE | 2019-09-29 15:45 | NUR ---
COMFORT/BM SMEAR/DRESSING CHANGE PATIENT CLEANSED OF SMALL BROWN STOOL, COMPLETE BEDDING CHANGED, PATIENT ABLE TO HELP TURN HIMSELF TO ASSIST THIS NURSE, NO WEAKNESS NOTED. PATIENT TOLERATED WELL. DRESSING CHANGE TO RIGHT IJ PERFORMED VIA STERILE TECHNIQUE. PATIENT TOLERATED WELL, ALL LINES FLUSHED, PATENT AND LOCKED.
--- NOTE | 2019-09-29 16:30 | NUR ---
RETURN CALL FROM PHYSICAL THERAPY REGARDING PENDING SWALLOW EVALUATION. PER P.T. "OCCUPATIONAL THERAPIST HAS BEEN NOTIFIED, WE WILL NOTIFY THEM AGAIN".
--- NOTE | 2019-09-29 16:43 | NUR ---
REPORT CALLED TO RECEIVING RN SPOKE WITH RENE - WILL TAKE PATIENT TO ROOM 237.
--- NOTE | 2019-09-29 16:58 | NUR ---
ICU patient trans to floor MILLI RICCI transferred to [facility] via rney on residential monitor and portable 02. All patient personal belongings transferred with patient to receiving floor. Patient alert and oriented x3, no distress noted, respiration even and unlabored on 3 liters nasal cannula. Patient medicated for pain prior to transfer. Patient care transferred to LELE Mi.
--- NOTE | 2019-09-29 17:00 | NUR ---
ICU patient trans to floor MILLI RICCI transfered to 237 via rney on color television console monitor and portable 02. All patient medications and personal belongings transferred with patient to receiving floor. Received report from LIDAR TECHNICIAN Luana. Patient is awake and alert x4. Patient has no s/s of distress/sob or pain at this time. Instructed patient on POC, patient verbalized understanding. Bed is in lowest position with side rails raised x2, bed wheels locked, seizure precautions in place, bed alarm on and call light is in patient's hand. Will continue to monitor.
--- NOTE | 2019-09-29 19:21 | NUR ---
CLOSING SHIFT NOTE ENDORSED CARE TO WIRE STRAIGHTENING MACHINE OPERATOR RN INGRID. PATIENT HAS NO S/S OF DISTRESS/SOB OR PAIN AT THIS TIME.
--- NOTE | 2019-09-29 19:30 | NUR ---
Opening Shift Note Assumed care of patient, awake and alert. No S/S of distress/SOB or pain. Insructed on POC and to callfor assist PRN, will continue to monitor for changes Q1hr and PRN. Fall and safety and seizure precautions in place. Call light within reach.
[2019-09-29] MEDS ORDERED: LEVETIRACETAM 500 MG/5ML INJ IV ONE (22:10)
[2019-09-29] MEDS: LORazepam 0.5 MG TAB PO PRN (23:51)
[2019-09-30] MEDS: MORPHINE SULFATE 4 MG/ML SYR/VIAL IV PRN ×2 (03:30→13:20)
--- NOTE | 2019-09-30 03:30 | NUR ---
Received report from Radha ROYAL. Patient resting at this time. Complains of pain in back 06/06. Will medicate per order.
[2019-09-30 04:55] VITALS: BP 147/88
[2019-09-30] MEDS: ACCU-CHEK COMFORT CURVE STRIP VI SCH ×3 (06:00→18:17)
[2019-09-30] MEDS: InsuLIN REG 1unit/0.01ml Soln (100units/ml) SC SCH ×3 (06:00→18:00)
[2019-09-30 06:27] LABS: BUN/Creatinine Ratio 16.7; Calcium 7.3 mg/dL (8.5-10.1); Potassium 3.5 mmol/L (3.5-5.1)
--- NOTE | 2019-09-30 07:10 | NUR ---
OPENING SHIFT NOTE ASSUMED CARE OF PATIENT FROM DOCTOR OF CHIROPRACTIC RN THERESE. PATIENT IS AWAKE AND ALERT X4. PATIENT HAS NO S/S OF DISTRESS/SOB OR PAIN. INSTRUCTED PATIENT ON POC, PATIENT VERBALIZED UNDERSTANDING. BED IS IN LOWEST POSITION WITH PADDED SIDE RAILS RAISED X2, BED WHEELS LOCKED, SALAZAR IS HANGING BELOW BLADDER AND IS DRAINING YELLOW URINE, CALL LIGHT IS IN PATIENT'S HAND. WILL CONTINUE TO MONITOR.
[2019-09-30] MEDS: CALCIUM CARB 500 MG CHEW TAB PO SCH (07:14)
--- NOTE | 2019-09-30 08:40 | NUR ---
SWALLOW EVALUATED. PATIENT HAS NO TEETH OR DENTURES BUT REPORTS HE NEVER WEARS DENTURES. ABLE TO TOLERATE MECHANICAL SOFT DIET TEXTURE WITH THIN LIQUIDS WITH NO OVERT SIGNS OR SYMPTOMS OF ASPIRATION. NURSING NOTIFIED.
[2019-09-30 09:00] VITALS: BP 147/74
--- NOTE | 2019-09-30 09:10 | NUR ---
DR. SHARP AT BEDSIDE UPDATED MD ON PATIENT'S STATUS. PER MD HE WANTS PATIENT ON A RENAL DIET AND ORDERED URINE CREATININE, SODIUM AND KIDNEY ULTRASOUND. WILL FOLLOW THROUGH WITH ORDERS.
[2019-09-30] MEDS: ERGOCALCIFEROL 50,000 UNIT(1.25MG) CAP PO SCH (09:15)
[2019-09-30] MEDS: ASPirin 81 mg TAB PO SCH (09:53)
[2019-09-30] MEDS: CARVEDILOL 3.125 MG TAB PO SCH ×2 (09:53→22:22)
[2019-09-30] MEDS: CALCIUM ACETATE 667 MG CAP PO SCH ×2 (09:53→18:18)
[2019-09-30] MEDS: PANTOPRAZOLE 40 MG/10 ML VIAL INJ IV SCH (09:55)
[2019-09-30] MEDS: LEVOTHYROXINE SODIUM 100 MCG/5 ML INJ IV SCH (09:55)
[2019-09-30] MEDS: methylPREDNISolone SOD SUCC 40 MG/ML VL IV SCH ×2 (09:55→11:00)
[2019-09-30] MEDS: DOXYCYCLINE 100MG/250ML 250 ML IV SCH (09:55)
--- NOTE | 2019-09-30 10:00 | NUR ---
ULTRASOUND IS BEING DONE AT THIS TIME.
[2019-09-30] MEDS: MUPIROCIN 2% OINT 15gm or 22gm EACHNOSTRI SCH ×2 (10:02→22:21)
--- NOTE | 2019-09-30 10:30 | NUR ---
URINE COLLECTED AND SENT TO LAB
[2019-09-30 10:36] LABS: Sodium Urine 66 mmol/L (40-220)
[2019-09-30 10:38] LABS: Creatinine, Urine 124 mg/dL (30.0-125.0)
--- NOTE | 2019-09-30 10:45 | NUR ---
DR. ROUSE AT BEDSIDE UPDATED MD ON PATIENT'S STATUS MD ORDERED CALCITROL FOR PATIENT AND D/C TLC. INFORMED MD, THAT DR. SHARP STOPPED CALCITROL AND ORDERED PHOSLO FOR PATIENT, DR. ROUSE IS AWARE AND WILL SPEAK WITH DR. SHARP. WILL FOLLOW THROUGH WITH ORDERS.
[2019-09-30] MEDS: LEVETIRACETAM INJ 1,000 MG in D5W 5% 100 ML IV SCH (11:00)
--- NOTE | 2019-09-30 12:00 | NUR ---
IV ATTEMPT CALLED DR. ROUSE AND INFORMED HER IV INSERTION WAS ATTEMPTED 4 TIMES BY MYSELF AND RESOURCE RN ALANNA AND ALL WERE UNSUCCESSFUL AND PATIENT DOES NOT HAVE IV ACCESS BESIDES THE TLC, MD IS AWARE AND WANTS A MIDLINE PUT IN, AFTER MIDLINE IS PUT IN DC TLC. WILL FOLLOW THROUGH WITH ORDERS. ALSO WANTS IV KEPPRA CHANGED TO PO.
--- NOTE | 2019-09-30 12:22 | NUR ---
WOUND CARE NOTE: Wound care in to see patient for skin integrity monitoring. Patient has been extubated and now in [facility]/telemetry unit. Patient continue resting on air bed in Rm. 231. Patient is awake, alert and able to verbalize needs. He's in no stated pain at this time and he appears to be in no pain using Hua Farley Faces Pain Scale. His current Ned score is 14. Skin assessment done with the assistance of patient's nurse, LELE Mi. No wound noted, no pressure injury noted. Patient tolerated, reposition for comfort. LELE Mi at bedside. RECOMMENDATION: Continuation of all wound care orders prescribed by MD, continue with skin/wound plan of care, continue monitoring by wound care while Ned score is <18. Addendum: 09/30/19 at 1715 by Margaret Johnson RN Amended: Links added.
--- NOTE | 2019-09-30 12:50 | NUR ---
TLC DRESSING CHANGED USING STERILE TECHNIQUE. PATIENT TOLERATED WELL.
[2019-09-30 13:00] VITALS: BP 146/84
--- NOTE | 2019-09-30 15:12 | NUR ---
Midline Placement: Patient educated on need for midline placement. All risks and benefits explained and all questions and concerns addresses prior to procedure. 4 Fr 20cm midline inserted via right brachial vein using Ultrasound. Sterile technique utilized. Blood return obtained from single lumen and flushed easily with NS using proper technique. Midline secured with saline lock; biodisc and occlusive dressing applied. Primary RN notified. Midline lot #[id number]. INTERNAL LENGTH 20CM EXTERNAL LENGTH 0CM
[2019-09-30 17:00] VITALS: BP 155/77
--- NOTE | 2019-09-30 19:15 | NUR ---
CLOSING SHIFT NOTE ENDORSED CARE TO CENTRIFUGAL WAX MOLDER RN INGRID. PATIENT HAS NO S/S OF DISTRESS/SOB OR PAIN. INFORMED HER TLC IS TO BE DISCONTINUED, RN IS AWARE OF ORDER.
--- NOTE | 2019-09-30 20:00 | NUR ---
BM Patient had BM in bed ritchie. Patient was cleaned, complete linen change done, and gown changed. Patient repositioned in bed for comfort, tolerated well. Will continue to monitor
[2019-09-30] MEDS: MORPHINE SULF INJ 2 MG/ML SYRINGE 1ML IV PRN (20:48)
[2019-09-30] MEDS: LEVETIRACETAM 500 MG TAB PO SCH (22:21)
[2019-09-30] MEDS: DOXYCYCLINE 100 MG TAB/CAP PO SCH (22:21)
[2019-09-30 22:51] VITALS: BP 148/90
--- NOTE | 2019-09-30 23:00 | NUR ---
MIDLINE DRESSING Midline dressing changed at this time due to being saturated with blood. Will continue to monitor for bleeding or leaking from site. Triple lumen catheter still in place at this time to ensure patient has IV access. If no leaking or bleeding from midline site noted during shift, will discontinue triple lumen catheter per MD order.
[2019-10-01] MEDS: InsuLIN REG 1unit/0.01ml Soln (100units/ml) SC SCH ×5 (01:02→23:40)
[2019-10-01] MEDS: ACCU-CHEK COMFORT CURVE STRIP VI SCH ×5 (01:02→23:40)
[2019-10-01] MEDS: MORPHINE SULF INJ 2 MG/ML SYRINGE 1ML IV PRN ×3 (03:26→22:42)
--- NOTE | 2019-10-01 03:30 | NUR ---
MIDLINE Patient complaining of throbbing pain to midline site, 04/06. Patient medicated with PRN pain medication (see emar) and ice pack provided. Informed patient to try ice pack and pain medication to see if pain subsides. Informed patient that if pain continues, midline will be removed. TLC still in place in RIJ. Will continue to monitor
[2019-10-01 05:43] VITALS: BP 134/81
--- NOTE | 2019-10-01 06:30 | NUR ---
MIDLINE Patient complaining of pain to midline site. Informed patient that midline can be removed if too painful, but TLC in RIJ will remain in place. Patient stated to leave midline in and "see what happens" (if pain subsides throughout day). Will inform day shift RN, midline and TLC still in place.
[2019-10-01 06:59] LABS: Albumin 2.8 g/dL (3.4-5.0); BUN/Creatinine Ratio 17.4; Calcium 6.7 mg/dL (8.5-10.1); Potassium 3.3 mmol/L (3.5-5.1)
[2019-10-01 07:02] LABS: Bilirubin, Total 0.4 mg/dL (0.2-1.0); Phosphorus 3.4 mg/dL (2.5-4.90); Total Protein 6.5 g/dL (6.4-8.2)
[2019-10-01 08:44] VITALS: BP 157/101
[2019-10-01] MEDS ORDERED: POTASSIUM EFFERVESENT TAB 25 MEQ PO ONE (09:45)
[2019-10-01] MEDS ORDERED: CALCITRIOL 0.25 MCG CAP PO SCH ×2 (10:00)
[2019-10-01] MEDS: CARVEDILOL 3.125 MG TAB PO SCH ×2 (10:22→21:52)
[2019-10-01] MEDS: DOXYCYCLINE 100 MG TAB/CAP PO SCH ×2 (10:23→21:52)
[2019-10-01] MEDS: PANTOPRAZOLE 40 MG TAB PO SCH (10:23)
[2019-10-01] MEDS: LEVOTHYROXINE SODIUM 100 MCG/5 ML INJ IV SCH (10:24)
[2019-10-01] MEDS: MUPIROCIN 2% OINT 15gm or 22gm EACHNOSTRI SCH ×2 (10:24→21:52)
[2019-10-01] MEDS: ASPirin 81 mg TAB PO SCH (10:24)
[2019-10-01] MEDS: LEVETIRACETAM 500 MG TAB PO SCH ×2 (10:24→21:52)
[2019-10-01] MEDS: methylPREDNISolone SOD SUCC 40 MG/ML VL IV SCH (10:54)
[2019-10-01] MEDS: CALCITRIOL 0.25 MCG CAP PO SCH (10:55)
[2019-10-01] MEDS: CALCIUM ACETATE 667 MG CAP PO SCH ×3 (10:55→18:45)
[2019-10-01 13:00] VITALS: BP 160/104
[2019-10-01 14:00] VITALS: BP 142/82
[2019-10-01 17:00] VITALS: BP 147/88
--- NOTE | 2019-10-01 17:17 | NUR ---
Received phone call from Laure from [facility] .Laure stated she will put in the request for transfer to [facility]. Addendum: 10/02/19 at 0942 by WENCESLAO RIVERA RN RN wrong patient
[2019-10-01] MEDS: ONDANSETRON HCL 4 MG/2 ML VIAL IV PRN ×2 (18:27→22:42)
[2019-10-01 21:44] VITALS: BP 145/84
[2019-10-01] MEDS: LORazepam 0.5 MG TAB PO PRN (23:31)
[2019-10-02 04:51] VITALS: BP 154/89
[2019-10-02] MEDS: ONDANSETRON HCL 4 MG/2 ML VIAL IV PRN ×2 (05:19→17:53)
[2019-10-02] MEDS: MORPHINE SULF INJ 2 MG/ML SYRINGE 1ML IV PRN ×3 (05:19→23:07)
[2019-10-02] MEDS: LEVOTHYROXINE SODIUM 100 MCG TAB PO SCH (05:20)
[2019-10-02] MEDS: InsuLIN REG 1unit/0.01ml Soln (100units/ml) SC SCH ×4 (05:34→23:17)
[2019-10-02] MEDS: ACCU-CHEK COMFORT CURVE STRIP VI SCH ×4 (05:34→23:06)
[2019-10-02 06:21] LABS: Calcium 7.4 mg/dL (8.5-10.1); Potassium 3.7 mmol/L (3.5-5.1)
[2019-10-02 06:28] LABS: Albumin 2.9 g/dL (3.4-5.0); BUN/Creatinine Ratio 18.4; Bilirubin, Total 0.3 mg/dL (0.2-1.0); Total Protein 6.5 g/dL (6.4-8.2)
[2019-10-02 08:31] VITALS: BP 140/88
[2019-10-02] MEDS: CALCITRIOL 0.25 MCG CAP PO SCH (08:38)
[2019-10-02] MEDS: CALCIUM ACETATE 667 MG CAP PO SCH ×4 (08:38→18:21)
[2019-10-02] MEDS: PANTOPRAZOLE 40 MG TAB PO SCH (08:39)
[2019-10-02] MEDS: LEVETIRACETAM 500 MG TAB PO SCH ×2 (08:39→21:52)
[2019-10-02] MEDS: ASPirin 81 mg TAB PO SCH (08:39)
[2019-10-02] MEDS: methylPREDNISolone SOD SUCC 40 MG/ML VL IV SCH (08:39)
[2019-10-02] MEDS: DOXYCYCLINE 100 MG TAB/CAP PO SCH ×2 (08:39→21:52)
[2019-10-02] MEDS: CARVEDILOL 3.125 MG TAB PO SCH ×2 (08:41→21:52)
[2019-10-02] MEDS: MUPIROCIN 2% OINT 15gm or 22gm EACHNOSTRI SCH ×2 (08:52→21:52)
--- NOTE | 2019-10-02 11:08 | NUR ---
Was called into patients room at the time patient was sitting at edge of bed with PT patient appeared weak and was losing balance in the sitting position. Patient placed back in bed and vitals taken temp 98.0 heart rate 67, blood pressure 157/97 o2 94 % on 2LNC respirations 16 even and unlabored. Blood sugar 210. Patient appeared weak and confused having difficultly answering questions, ask who current president was stated "Cronin" ask the year patient stated 2022. Patient could not state where he was and was staring off.Call Doctor Alan informed her of patient status per Alan she will come and assess him. No new orders received.
[2019-10-02] MEDS ORDERED: ENOXAPARIN SOD 40 MG/0.4 ML SYRINGE SC ONE (11:15)
--- NOTE | 2019-10-02 11:18 | NUR ---
Alan at bedside.
--- NOTE | 2019-10-02 11:39 | NUR ---
Nutrition Follow-up Notes Wt.: 115.0 kg today. Pt's in isolation room, with no relatives at bedside when rounded this morning. Noted pt's just successfully extubated, with diet advanced to Renal Standard. Pt appetite is good aeb 100% x5 PO intake per RN doc. Pt confirmed he is not on dialysis. Pt noted no distress other than some nausea, and with no complaints. Will follow up in 3-5 days. Recommendation: Consider Renal Specific diet in lieu of current diet order d/t pt not on dialysis. Est. Needs: 1800 kcal to 2450 kcal (15-20 kcal/kgBW), 69 gms to 86 gms pro (0.8-1.0 gms/kgIBW: 86 kg). Will continue to monitor pertinent labs and reassess nutrient need prn Labs: Gluc 156 H, BUN 34 H, Cr 1.85 H, Ca 7.4 L; HbA1c 7.6 H, Alb 2.9 L Skin: Ned scale 14, mod risk, skin intact per applique cutter. GI: Pt's last bowel movement on 09/29/19 per applique cutter. PES: Partially resolved: Increased nutrient needs r/t acute/chronic medical condition aeb intubated, sedated, mod hypoalbuminemia, NPO. Altered nutrition related lab values r/t current/chronic medical condition aeb hyperglycemia, elev. renal labs,HbA1c, LFTs,hypocalcemia and mod hypoalbuminemia Obesity r/t food intake more than body requirement aeb 140% IBW, BMI 34.2 kg/m2 and increased body adiposity Will continue to monitor NPO status, skin status, pertinent labs and weight trend. F/u in 2 to 3 days. Rec.: 1.) Advance gradually to oral diet (Consistent Standard Carb: 60 gms/meal, Cardiac: 2 gms Na, Low Chol, Low Fat diet-per ST's diet texture recommendation) when medically appropriate. 2.) If Albumin continues trending down with improved renal labs, consider Prostat 1 pkt BID. 3.) If still NPO, consider alternate/EN support with formula choice of Glucerna 1.2 Delvis @ 75 ml/hr goal rate as tolerated if medically appropriate. 4.) Refer pt to CDE/RD for further nutrition education and weight monitoring upon discharge. 5.) Continue current plan of care.
[2019-10-02 11:47] LABS: Basophils # (auto) 0 uL; Basophils % (auto) 0.3 % (0.0-2.0); Eosinophils # (auto) 0.1 uL; Eosinophils % (auto) 1.1 % (0.0-7.0); Hematocrit 33.8 % (41.0-53.0); Hemoglobin 11.6 g/dL (13.5-17.5); Lymphocytes # (auto) 0.7 uL; Lymphocytes % (auto) 7.8 % (10.0-50.0); Mean Corpuscular Hemoglobin 31.4 pg (28.0-32.0); Mean Corpuscular Hgb Conc. 34.4 g/dL (32.0-36.0); Mean Corpuscular Volume 91.2 fL (80.0-100.0); Monocytes # (auto) 0.4 uL; Monocytes % (auto) 4.5 % (0.0-12.0); Neutrophils # (auto) 7.8 uL; Neutrophils % (auto) 86.3 % (37.0-80.0); Nucleated Red Blood Cells % 0.1 %; Platelet Count (auto) 167 10^3/uL (140-450); Red Blood Cells 3.71 10^6/uL (4.5-5.90)
[2019-10-02 12:06] VITALS: BP 151/81
[2019-10-02] MEDS ORDERED: hydrALAZINE HCL 25 MG TAB PO ONE (16:15)
[2019-10-02 17:14] VITALS: BP 109/72
--- NOTE | 2019-10-02 20:00 | NUR ---
OPENING NOTE RECEIVED REPORT FROM DAYSDEBORAH RN. ASSUMING ROLE OF CARE OF PATIENT AT THIS TIME. PATIENT ALERT AND ORIENTED. PATIENT SHOWING NO SIGN OF DISTRESS, SHORTNESS OF BREATH, AND PATIENT STATES PAIN BUT PAIN MEDICINE NOT AVAILABLE AT THIS TIME. WILL MEDICATE ONCE MEDICINE IS AVAILABLE. PATIENT EDUCATED ON PLAN OF CARE FOR THE NIGHT AND PATIENT VERBALIZED UNDERSTANDING. BED LOWERED, CALL LIGHT WITHIN REACH, AND PATIENT WILL BE ROUNDED ON EVERY HOUR AND NEEDED.
[2019-10-02] MEDS: hydrALAZINE HCL 25 MG TAB PO SCH (21:52)
[2019-10-02 22:00] VITALS: BP 126/74
[2019-10-03] MEDS: MORPHINE SULF INJ 2 MG/ML SYRINGE 1ML IV PRN ×3 (03:52→23:05)
--- NOTE | 2019-10-03 03:52 | NUR ---
PATIENT COMPLAINING OF CHEST PAIN 05/07. EKG PERFORMED SHOWING SINUS RHYTHM. VITALS TAKEN WELL BP 150/85, HR 64, AND SPO2 96% ON 2L NC. PATIENT GIVEN PAIN MEDICINE. WILL CONTINUE TO MONITOR.
--- NOTE | 2019-10-03 04:39 | NUR ---
PATIENT REASSESSED PATIENT RESTING COMFORTABLY WATCHING TV. PATIENT STATES THERE IS STILL PAIN AT 6/10 BUT IT IS DECREASING. HOSPITALIST PAGED BUT NO RESPONSE AT THIS TIME. WILL ATTEMPT AGAIN.
[2019-10-03 05:00] VITALS: BP 159/88
[2019-10-03] MEDS ORDERED: MORPHINE SULFATE 4 MG/ML SYR/VIAL IV PRN (05:15)
[2019-10-03] MEDS ORDERED: NITROGLYCERIN 0.4 MG SL TAB SL PRN (05:15)
[2019-10-03] MEDS: InsuLIN REG 1unit/0.01ml Soln (100units/ml) SC SCH ×4 (06:08→23:04)
[2019-10-03] MEDS: ACCU-CHEK COMFORT CURVE STRIP VI SCH ×4 (06:08→23:04)
[2019-10-03] MEDS: LEVOTHYROXINE SODIUM 100 MCG TAB PO SCH (06:08)
[2019-10-03] MEDS: hydrALAZINE HCL 25 MG TAB PO SCH ×3 (06:08→21:29)
[2019-10-03 06:11] LABS: Albumin 2.9 g/dL (3.4-5.0); Potassium 3.8 mmol/L (3.5-5.1)
[2019-10-03 06:16] LABS: BUN/Creatinine Ratio 19.6; Bilirubin, Total 0.3 mg/dL (0.2-1.0); Total Protein 6.5 g/dL (6.4-8.2)
--- NOTE | 2019-10-03 07:15 | NUR ---
Opening shift note Report received and rounding completed. Patient observed awake, alert, and talking on the phone without S/S of distress. Oriented to this RN and POC. Patient verbalized understanding, call andrews within reach. Seizure precautions in place.
[2019-10-03 08:48] VITALS: BP 153/87
[2019-10-03] MEDS: CALCIUM ACETATE 667 MG CAP PO SCH ×3 (08:54→17:20)
[2019-10-03] MEDS: CARVEDILOL 3.125 MG TAB PO SCH ×2 (11:16→21:30)
[2019-10-03] MEDS: LEVETIRACETAM 500 MG TAB PO SCH ×2 (11:18→21:30)
[2019-10-03] MEDS: CALCITRIOL 0.25 MCG CAP PO SCH (11:18)
[2019-10-03] MEDS: PANTOPRAZOLE 40 MG TAB PO SCH (11:19)
[2019-10-03] MEDS: DOXYCYCLINE 100 MG TAB/CAP PO SCH ×2 (11:19→21:30)
[2019-10-03] MEDS: ASPirin 81 mg TAB PO SCH (11:19)
[2019-10-03] MEDS: ENOXAPARIN SOD 40 MG/0.4 ML SYRINGE SC SCH (11:20)
[2019-10-03] MEDS: methylPREDNISolone SOD SUCC 40 MG/ML VL IV SCH (11:21)
[2019-10-03] MEDS: ONDANSETRON HCL 4 MG/2 ML VIAL IV PRN ×2 (12:31→21:47)
[2019-10-03] MEDS: HYDROcodone-ACET 5/325MG TAB PO PRN (12:32)
[2019-10-03] MEDS: MUPIROCIN 2% OINT 15gm or 22gm EACHNOSTRI SCH (12:36)
[2019-10-03 13:00] VITALS: BP 146/88
--- NOTE | 2019-10-03 16:35 | NUR ---
D/C ROGER James stated authorization for discharge to facility will not occur until tomorrow. called and notified. Alan stated okay.
[2019-10-03 17:19] VITALS: BP 157/81
--- NOTE | 2019-10-03 20:00 | NUR ---
Opening Shift Note Assumed care of patient, awake and alert. No S/S of distress/SOB or pain. Instructed on POC and to call for assist PRN, will continue to monitor for changes Q1hr and PRN.
[2019-10-03 22:00] VITALS: BP 145/77
[2019-10-04] MEDS: MORPHINE SULF INJ 2 MG/ML SYRINGE 1ML IV PRN ×6 (04:20→21:51)
[2019-10-04 05:00] VITALS: BP 158/93
[2019-10-04] MEDS: ONDANSETRON HCL 4 MG/2 ML VIAL IV PRN ×2 (05:51→20:44)
[2019-10-04] MEDS: hydrALAZINE HCL 25 MG TAB PO SCH ×3 (05:51→21:52)
[2019-10-04] MEDS: ACCU-CHEK COMFORT CURVE STRIP VI SCH ×3 (05:51→17:30)
[2019-10-04 06:14] LABS: Albumin 3.1 g/dL (3.4-5.0); Calcium 8.4 mg/dL (8.5-10.1)
[2019-10-04] MEDS: InsuLIN REG 1unit/0.01ml Soln (100units/ml) SC SCH ×3 (06:16→17:29)
[2019-10-04] MEDS: LEVOTHYROXINE SODIUM 100 MCG TAB PO SCH (06:17)
[2019-10-04 06:30] LABS: BUN/Creatinine Ratio 18.7; Bilirubin, Total 0.4 mg/dL (0.2-1.0); Potassium 3.7 mmol/L (3.5-5.1); Total Protein 6.9 g/dL (6.4-8.2)
--- NOTE | 2019-10-04 07:30 | NUR ---
received reports, patient is a/o, reports pain to back at 7 out of 10, can turn self, no s/s of distress noted, will continue to montior.
[2019-10-04] MEDS: CALCIUM ACETATE 667 MG CAP PO SCH ×3 (08:14→17:27)
--- NOTE | 2019-10-04 08:25 | NUR ---
0811 10/04/19 I contacted [facility] Clinical Biostatistician Valarie [phone] extension [phone] and left message asking for assistance in placing this patient in SNF. I contacted [phone] and spoke with Manju, she confirmed that the SNF request would go through [facility].
[2019-10-04 09:00] VITALS: BP 149/87
[2019-10-04] MEDS: methylPREDNISolone SOD SUCC 40 MG/ML VL IV SCH (09:20)
[2019-10-04] MEDS: LEVETIRACETAM 500 MG TAB PO SCH ×2 (09:21→21:51)
[2019-10-04] MEDS: CARVEDILOL 3.125 MG TAB PO SCH ×2 (09:21→21:51)
[2019-10-04] MEDS: PANTOPRAZOLE 40 MG TAB PO SCH (09:21)
[2019-10-04] MEDS: ASPirin 81 mg TAB PO SCH (09:21)
[2019-10-04] MEDS: DOXYCYCLINE 100 MG TAB/CAP PO SCH ×2 (09:22→21:51)
[2019-10-04] MEDS: ENOXAPARIN SOD 40 MG/0.4 ML SYRINGE SC SCH (09:22)
[2019-10-04] MEDS: CALCITRIOL 0.25 MCG CAP PO SCH (09:24)
--- NOTE | 2019-10-04 12:01 | NUR ---
1200 10/04/19 I received a message from [facility] Guard Entrance Registrar Valarie letting me know that I need to fax the SNF request to [phone]-faxed requested information.
[2019-10-04] MEDS: HYDROcodone-ACET 5/325MG TAB PO PRN (12:37)
[2019-10-04 12:55] VITALS: BP 146/85
--- NOTE | 2019-10-04 15:00 | NUR ---
Per case management there is no placement available at this time, pts informed. Pt requesting to go outside and smoke, spoke with MD sapp patch ordered. pt informed.
[2019-10-04 16:25] VITALS: BP 130/66
[2019-10-04] MEDS ORDERED: MORPHINE SULF INJ 2 MG/ML SYRINGE 1ML IV PRN (16:45)
--- NOTE | 2019-10-04 19:30 | NUR ---
OPENING SHIFT NOTE Assumed care of patient, awake and alert x3, reoriented patient to year, will continue to reorient patient as needed and throughout shift. Patient denies pain or shortness of breath at this time. Instructed on plan of care and to call for assistance as needed, patient verbalized understanding. Bed is locked in lowest position, side rails x 2 are up, call light is within reach, and bed alarm is on.
[2019-10-04 21:04] VITALS: BP 134/86
[2019-10-05] MEDS: ACCU-CHEK COMFORT CURVE STRIP VI SCH ×4 (00:03→17:25)
[2019-10-05] MEDS: InsuLIN REG 1unit/0.01ml Soln (100units/ml) SC SCH ×4 (00:03→17:36)
[2019-10-05] MEDS: ONDANSETRON HCL 4 MG/2 ML VIAL IV PRN ×5 (00:58→22:00)
[2019-10-05] MEDS: MORPHINE SULF INJ 2 MG/ML SYRINGE 1ML IV PRN ×4 (02:02→22:00)
[2019-10-05 04:59] VITALS: BP 122/77
[2019-10-05] MEDS: hydrALAZINE HCL 25 MG TAB PO SCH ×3 (06:15→22:00)
[2019-10-05] MEDS: LEVOTHYROXINE SODIUM 100 MCG TAB PO SCH (06:15)
[2019-10-05 07:25] LABS: Potassium 3.6 mmol/L (3.5-5.1)
[2019-10-05 07:30] LABS: BUN/Creatinine Ratio 17.8; Bilirubin, Total 0.3 mg/dL (0.2-1.0); Calcium 8.3 mg/dL (8.5-10.1); Total Protein 6.6 g/dL (6.4-8.2)
--- NOTE | 2019-10-05 07:30 | NUR ---
Opening Shift Note Assuming care of patient at this time. Patient is awake and alert. Patient denies pain. Patient shows no signs or symptoms of distress or shortness of breath. Bed is locked and lowered with side rails up x2. Instructed patient on the plan of care for today and to call for assistance as needed. Call light within reach. Will continue to round hourly and as needed.
[2019-10-05 09:00] VITALS: BP 130/75
[2019-10-05] MEDS: LEVETIRACETAM 500 MG TAB PO SCH ×2 (09:26→23:27)
[2019-10-05] MEDS: ASPirin 81 mg TAB PO SCH (09:26)
[2019-10-05] MEDS: methylPREDNISolone SOD SUCC 40 MG/ML VL IV SCH (09:27)
[2019-10-05] MEDS: CALCIUM ACETATE 667 MG CAP PO SCH ×3 (09:27→17:36)
[2019-10-05] MEDS: DOXYCYCLINE 100 MG TAB/CAP PO SCH ×2 (09:27→23:27)
[2019-10-05] MEDS: PANTOPRAZOLE 40 MG TAB PO SCH (09:28)
[2019-10-05] MEDS: CALCITRIOL 0.25 MCG CAP PO SCH (09:28)
[2019-10-05] MEDS: ENOXAPARIN SOD 40 MG/0.4 ML SYRINGE SC SCH (09:29)
[2019-10-05] MEDS: NICOTINE 14 MG/24HR TOPICAL PATCH TD SCH (09:30)
[2019-10-05] MEDS: CARVEDILOL 3.125 MG TAB PO SCH ×2 (09:32→22:00)
--- NOTE | 2019-10-05 09:47 | NUR ---
Eyeglass Fitter Spoke with Erika in executive secretary social welfare. At this time there is no accepting facility. Patient will stay until at least Monday, executive secretary social welfare to follow-up then.
[2019-10-05 12:27] VITALS: BP 126/69
[2019-10-05 16:34] VITALS: BP 131/68
--- NOTE | 2019-10-05 19:24 | NUR ---
Closing Shift Note Patient resting in bed. No distress noted. Report given. Will endorse care to the security shift manager RN.
--- NOTE | 2019-10-05 19:30 | NUR ---
Opening Shift Note Assumed care of patient, awake, AAOx4. No S/S of distress/SOB. On 2L oxygen via nasal cannula. Max assist. Bed in lowest locked position, side rails up x2, call light within reach. Instructed on POC and to call for assist PRN, will continue to monitor for changes Q1hr and PRN.
[2019-10-05 21:26] VITALS: BP 116/78
[2019-10-06] MEDS: InsuLIN REG 1unit/0.01ml Soln (100units/ml) SC SCH ×4 (00:06→17:33)
[2019-10-06] MEDS: ACCU-CHEK COMFORT CURVE STRIP VI SCH ×4 (00:06→17:26)
[2019-10-06 05:00] VITALS: BP 156/87
[2019-10-06] MEDS: MORPHINE SULF INJ 2 MG/ML SYRINGE 1ML IV PRN ×4 (05:30→19:15)
[2019-10-06] MEDS: ONDANSETRON HCL 4 MG/2 ML VIAL IV PRN ×4 (05:30→19:15)
[2019-10-06] MEDS: hydrALAZINE HCL 25 MG TAB PO SCH ×3 (05:40→22:00)
[2019-10-06] MEDS: LEVOTHYROXINE SODIUM 100 MCG TAB PO SCH (06:32)
[2019-10-06] MEDS: CALCIUM ACETATE 667 MG CAP PO SCH ×3 (08:17→17:33)
[2019-10-06 09:00] VITALS: BP 140/74
[2019-10-06] MEDS: CARVEDILOL 3.125 MG TAB PO SCH ×2 (09:53→22:01)
[2019-10-06] MEDS: LEVETIRACETAM 500 MG TAB PO SCH ×2 (09:54→22:01)
[2019-10-06] MEDS: DOXYCYCLINE 100 MG TAB/CAP PO SCH ×2 (09:54→22:01)
[2019-10-06] MEDS: ASPirin 81 mg TAB PO SCH (09:54)
[2019-10-06] MEDS: CALCITRIOL 0.25 MCG CAP PO SCH (09:54)
[2019-10-06] MEDS: PANTOPRAZOLE 40 MG TAB PO SCH (09:54)
[2019-10-06] MEDS: ENOXAPARIN SOD 40 MG/0.4 ML SYRINGE SC SCH (09:58)
[2019-10-06] MEDS: NICOTINE 14 MG/24HR TOPICAL PATCH TD SCH (09:58)
[2019-10-06] MEDS: methylPREDNISolone SOD SUCC 40 MG/ML VL IV SCH (09:59)
[2019-10-06 13:00] VITALS: BP 141/79
[2019-10-06 14:36] LABS: Basophils # (auto) 0 uL; Basophils % (auto) 0.5 % (0.0-2.0); Eosinophils # (auto) 0.1 uL; Hematocrit 34.3 % (41.0-53.0); Hemoglobin 11.6 g/dL (13.5-17.5); Lymphocytes # (auto) 0.5 uL; Mean Corpuscular Hemoglobin 30.7 pg (28.0-32.0); Mean Corpuscular Hgb Conc. 33.8 g/dL (32.0-36.0); Mean Corpuscular Volume 90.8 fL (80.0-100.0); Monocytes # (auto) 0.2 uL; Monocytes % (auto) 2.7 % (0.0-12.0); Neutrophils # (auto) 6.4 uL; Neutrophils % (auto) 88.8 % (37.0-80.0); Platelet Count (auto) 144 10^3/uL (140-450); Red Blood Cells 3.78 10^6/uL (4.5-5.90); Red Cell Distribution Width 13.9 % (11.8-14.3); White Blood Cell 7.2 10^3/uL (4.4-10.8)
[2019-10-06 14:56] LABS: BUN/Creatinine Ratio 19.3; Calcium 8.2 mg/dL (8.5-10.1); Potassium 4.2 mmol/L (3.5-5.1)
[2019-10-06 16:58] VITALS: BP 142/84
--- NOTE | 2019-10-06 19:21 | NUR ---
Closing Shift Note Patient resting in bed. No distress noted. Patient has been medicated for pain and nausea. Report given. Will endorse care to the scagliola mechanic RN.
--- NOTE | 2019-10-06 19:30 | NUR ---
Opening Shift Note Assumed care of patient, awake, AAOx4. No S/S of distress/SOB. On 2L oxygen via nasal cannula. Max assist. Isolation precautions in place. Bed in lowest locked position, side rails up x2, call light within reach. Instructed on POC and to call for assist PRN, will continue to monitor for changes Q1hr and PRN.
[2019-10-06 22:00] VITALS: BP 155/90
[2019-10-07] MEDS: InsuLIN REG 1unit/0.01ml Soln (100units/ml) SC SCH ×3 (00:25→11:50)
[2019-10-07] MEDS: ACCU-CHEK COMFORT CURVE STRIP VI SCH ×3 (00:25→11:49)
[2019-10-07 05:00] VITALS: BP 144/96
[2019-10-07] MEDS: hydrALAZINE HCL 25 MG TAB PO SCH ×2 (06:15→06:18)
[2019-10-07] MEDS: LEVOTHYROXINE SODIUM 100 MCG TAB PO SCH (06:17)
[2019-10-07] MEDS: MORPHINE SULF INJ 2 MG/ML SYRINGE 1ML IV PRN ×2 (06:36→11:58)
[2019-10-07] MEDS: ONDANSETRON HCL 4 MG/2 ML VIAL IV PRN (06:36)
[2019-10-07 07:42] LABS: Basophils # (auto) 0 uL; Basophils % (auto) 0.4 % (0.0-2.0); Eosinophils # (auto) 0.1 uL; Eosinophils % (auto) 1.7 % (0.0-7.0); Hematocrit 33.3 % (41.0-53.0); Hemoglobin 11.4 g/dL (13.5-17.5); Lymphocytes # (auto) 0.9 uL; Lymphocytes % (auto) 12.3 % (10.0-50.0); Mean Corpuscular Hgb Conc. 34.3 g/dL (32.0-36.0); Mean Corpuscular Volume 90.5 fL (80.0-100.0); Monocytes # (auto) 0.7 uL; Monocytes % (auto) 8.8 % (0.0-12.0); Neutrophils # (auto) 5.8 uL; Neutrophils % (auto) 76.8 % (37.0-80.0); Platelet Count (auto) 158 10^3/uL (140-450); Red Blood Cells 3.69 10^6/uL (4.5-5.90); Red Cell Distribution Width 13.9 % (11.8-14.3); White Blood Cell 7.5 10^3/uL (4.4-10.8)
[2019-10-07 08:00] LABS: BUN/Creatinine Ratio 19.3; Calcium 8.2 mg/dL (8.5-10.1); Potassium 3.8 mmol/L (3.5-5.1)
[2019-10-07] MEDS: CALCIUM ACETATE 667 MG CAP PO SCH ×2 (08:33→11:49)
[2019-10-07 08:39] VITALS: BP 147/86
[2019-10-07] MEDS: ERGOCALCIFEROL 50,000 UNIT(1.25MG) CAP PO SCH (09:09)
[2019-10-07] MEDS: ASPirin 81 mg TAB PO SCH (09:43)
[2019-10-07] MEDS: methylPREDNISolone SOD SUCC 40 MG/ML VL IV SCH (09:43)
[2019-10-07] MEDS: ENOXAPARIN SOD 40 MG/0.4 ML SYRINGE SC SCH (09:44)
[2019-10-07] MEDS: NICOTINE 14 MG/24HR TOPICAL PATCH TD SCH (09:44)
[2019-10-07] MEDS: DOXYCYCLINE 100 MG TAB/CAP PO SCH (09:44)
[2019-10-07] MEDS: PANTOPRAZOLE 40 MG TAB PO SCH (09:44)
[2019-10-07] MEDS: LEVETIRACETAM 500 MG TAB PO SCH (09:44)
--- NOTE | 2019-10-07 09:45 | NUR ---
Discharge planning per consult, patient has orders to dc to snf placement for aggressive PT rehab. auth obtained once an accepting facility has a bed [id number] per [facility] rep Valarie [phone]. Referral was sent to [facility] [phone], [facility] [phone], [facility] [phone], [facility] [phone], and [facility] [phone]. Acceptance is pending. Addendum: 10/07/19 at 1252 by KRIS LANCASTER Patient was accepted at [facility] [phone] (Please call this number to give report), into room [address] Manzo. Transportation was arranged with [facility] [phone] for a 1500 pick time. Auth obtained for transportation [id number]. Nurse Mukherjee was advised and will notify Nurse Murray of la plan.
[2019-10-07] MEDS: CARVEDILOL 3.125 MG TAB PO SCH (09:47)
[2019-10-07] MEDS: CALCITRIOL 0.25 MCG CAP PO SCH (09:47)
[2019-10-07 12:50] VITALS: BP 143/86
--- NOTE | 2019-10-07 14:52 | NUR ---
IV REMOVED TELE REMOVED. REPORT GIVEN TO [facility]. REPORT CALLED TO TO [facility] REPORT GIVEN TO REEMA Mancini
[2019-10-08] MEDS ORDERED: predniSONE 20 MG TAB PO SCH (10:00)
== END 2019-10-07 15:00 | DRG 207 ==
LOC: EDBD 20:48 → ER 20:48 → TELE-EAST 20:49 → ICU WEST 09-22 13:31 → TELE-EAST 09-29 17:05
PROVIDERS: ADMIT Hospitalist; ATTEND Internal Medicine Nephrology
PROC: 02HV33Z Insertion of Infusion Device into Superior Vena Cava, Percutaneous Approach (ICD-10-PCS; principal; 2019-09-22)
PROC: 5A1955Z Respiratory Ventilation, Greater than 96 Consecutive Hours (ICD-10-PCS; 2019-09-22)
PROC: 0BH17EZ Insertion of Endotracheal Airway into Trachea, Via Natural or Artificial Opening (ICD-10-PCS; 2019-09-22)
PROC: B548ZZA Ultrasonography of Superior Vena Cava, Guidance (ICD-10-PCS; 2019-09-22)
PROC: 0BJ08ZZ Inspection of Tracheobronchial Tree, Via Natural or Artificial Opening Endoscopic (ICD-10-PCS; 2019-09-26)
PROC: 0BC28ZZ Extirpation of Matter from Carina, Via Natural or Artificial Opening Endoscopic (ICD-10-PCS; 2019-09-26)
DX: J96.01 Acute respiratory failure with hypoxia (principal); J15.212 Pneumonia due to Methicillin resistant Staphylococcus aureus; N17.0 Acute kidney failure with tubular necrosis; I50.43 Acute on chronic combined systolic (congestive) and diastolic (congestive) heart failure; E87.1 Hypo-osmolality and hyponatremia; Z99.11 Dependence on respirator [ventilator] status; T78.3XXA Angioneurotic edema, initial encounter; F15.10 Other stimulant abuse, uncomplicated; E11.22 Type 2 diabetes mellitus with diabetic chronic kidney disease; Z68.33 Body mass index [BMI] 33.0-33.9, adult; E66.9 Obesity, unspecified; E83.51 Hypocalcemia; I12.9 Hypertensive chronic kidney disease with stage 1 through stage 4 chronic kidney disease, or unspecified chronic kidney disease; N18.3 Chronic kidney disease, stage 3 (moderate); E87.6 Hypokalemia; F15.129 Other stimulant abuse with intoxication, unspecified; E83.39 Other disorders of phosphorus metabolism; J38.4 Edema of larynx; X58.XXXA Exposure to other specified factors, initial encounter; F79 Unspecified intellectual disabilities; Z91.19 Patient's noncompliance with other medical treatment and regimen; Z93.3 Colostomy status; Z86.73 Personal history of transient ischemic attack (TIA), and cerebral infarction without residual deficits; Y93.89 Activity, other specified; Y92.89 Other specified places as the place of occurrence of the external cause; Y99.8 Other external cause status; Z79.899 Other long term (current) drug therapy
CPT/HCPCS: 36415; 36600; 70450; 70490; 71045; 71250; 74176; 74177; 76775; 80048; 80053; 80202; 80307; 81001; 82306; 82533; 82570; 82805; 82962; 83036; 83605; 83735; 83880; 83970; 84100; 84132; 84300; 84439; 84443; 84484; 84550; 85025; 85379; 85610; 85652; 85730; 86141; 86160; 87040; 87070; 87077; 87186; 87205; 92610; 93005; 93306; 93970; 93971; 94002; 94003; 94640; 96365; 96372; 96375; 97110; 97116; 97163; 97530; C9113; G0378; J0171; J0330; J0610; J0636; J1815; J2250; J2405; J2543; J2704; J3480; J3490; J7060